=== PATIENT | male | born 1970 | race Caucasian/White ===

== ENCOUNTER 2019-08-11 12:15 | Inpatient (IN) ==
[2019-08-11] MEDS ORDERED: HYDROmorphone HCL 1 MG/ML DISP.SYRIN ONE (12:18)
[2019-08-11] MEDS ORDERED: HYDROmorphone HCL 1 MG/ML DISP.SYRIN IV ONE ×2 (12:24→13:11)
[2019-08-11] MEDS ORDERED: NORMAL SALINE 1,000 ML IV ONE (12:24)
--- NOTE | 2019-08-11 13:14 | ERNOTE ---
Trauma/Assault HPI - Narrative Date of Service: 08/11/19 - General Stated Complaint: fall Time Seen by Provider: 08/11/19 12:21 Source: patient Exam Limitations: no limitations - Immun/Allergies/Home Medications Immunizations: IMMUNIZATION HX Immunizations Up to Date Yes History of Influenza Vaccine Yes Hx Pneumococcal Vaccination No Allergies/Adverse Reactions: Allergies No Known Allergies Allergy (Verified 08/11/19 12:27) Home Medications: HOME MEDICATIONS Insulin Glargine,Hum.rec.anlog [Basaglar Kwikpen U-100] 55 unit SQ DAILY 08/11/19 [Last Taken Unknown] metFORMIN HCL [Metformin HCl] 500 mg PO BID 08/11/19 [Last Taken Unknown] - History of Present Illness Narrative: patient outside on ladder, fell 10-12 feet on right hip brought to ed per ambulance Location Occurred: Reports: home Pain Location: Reports: lower extremity Method of Injury: Reports: direct blow, fall Severity: severe Modifying Factors - (Improves): Reports: other - nothiing Loss of Consciousness: Reports: no loss of consciousness Associated Symptoms - Trauma: Reports: denies symptoms Review of Systems - Review of Systems Constitutional: Present: See HPI EYE: Present: no symptoms reported ENT: Present: no symptoms reported Respiratory: Present: no symptoms reported Cardiology: Present: no symptoms reported Gastrointestinal/Abdominal: Present: no symptoms reported Genitourinary: Present: no symptoms reported Musculoskeletal: Present: See HPI, muscle pain, muscle stiffness, joint pain Neurological: Present: no symptoms reported Endocrine: Present: no symptoms reported Hematologic/Lymphatic: Present: no symptoms reported Psych: Present: no symptoms reported All Other Systems: All systems neg except as marked Medical History (Last Updated 08/11/19 @ 12:26 by Mary Fonseca RN) Diabetes Surgical History: Surgical History (Last Updated 08/11/19 @ 12:27 by Mary Fonseca RN) H/O hand surgery Family History: Family History (Last Updated 08/11/19 @ 12:27 by Mary Fonseca RN) Other No pertinent family history Social History: (Last Updated 08/11/19 @ 12:27 by Mary Fonseca RN) Tobacco: Smoking Status: Never smoker tobacco type: smokeless tobacco Alcohol: alcohol intake: never Substance Use: substance use type: does not use Physical Exam - Physical Exam General Appearance: Present: severe distress, anxious Head Exam: Present: normal inspection, no evidence of injury Eye Exam: Normal inspection: bilateral, PERRL: bilateral, EOMI: bilateral Ears, Nose, Throat: Present: normal ENT inspection, normal pharynx Neck: Present: normal inspection, nontender Respiratory: Present: no respiratory distress, normal breath sounds, no accessory muscle use, chest nontender, lungs clear Cardiovascular/Chest: Present: no murmur, normal peripheral pulses, tachycardia Peripheral Pulses: N=norm/S=strong/W=weak/B=bound/A=absent: Carotid (R): Normal, Carotid (L): Normal, Radial (R): Normal, Radial (L): Normal, Femoral (R): Normal, Femoral (L): Normal, Dorsalis-pedis (R): Normal, Dorsalis-pedis (L): Nor mal Gastrointestinal/Abdominal: Present: normal bowel sounds, nontender, nondistended, soft, no organomegaly Back Exam: Present: normal inspection, normal range of motion, no CVA tenderness, no vertebral tenderness Extremity Exam: Present: normal except - Neurological Exam: Present: alert, oriented, normal mood/affect, no motor/sensory deficits Skin Exam: Present: normal color, warm/dry - pain in proximal right hip, neurovasculr intact Lymphatic Exam: Present: no adenopathy Detailed Trauma Exam Best Eye Response (Yaya): (4) open spontaneously Best Verbal Response (Yaya): (5) oriented Best Motor Response (Yaya): (6) obeys commands [place] Total: 15 General Appearance: Present: severe distress, anxious Head Injury: Present: normal inspection, no tenderness on palpate Neurological Exam: Present: alert, oriented x 4, no motor/sensory deficits, transportation escort II-XII nml as tested, normal cerebellar test, normal mood/affect, no motor/sensory deficit Neck Exam: Present: non-tender, full range of motion, normal alignment, normal inspection Nexus Clearance: Present: Nexus criteria negative Eye Exam: Normal inspection: bilateral, PERRL: bilateral, EOMI: bilateral ENT Exam: Present: nml ext. inspection Chest/Respiratory Exam: Present: nml inspection, chest non-tender, breath sounds nml Cardiovascular Exam: Present: no murmur, normal peripheral pulses, tachycardia Back Exam: Present: normal inspection, no CVA tenderness RU Extremity: Present: normal inspection, normal range of motion, non-tender, no edema IVIS Extremity: Present: normal inspection, normal range of motion, non-tender, no edema RL Extremity: Present: decreased range of motion, deformity, joint redness LL Extremity: Present: normal inspection, normal range of motion, non-tender, no edema DTR: bicep (R): 0, bicep (L): 0, tricep (R): 0, tricep (L): 0, knee (R): 0, knee (L): 0, ankle (R): 0, ankle (L): 0 - C-Spine cleared by: Neg history & exam Progress - Date and Time Seen: Date and Time: 08/11/19 13:13 condition unchanged case discussed with dr esquivel, to admit and repair , dr merida contacted, accepts patient for admission - Results and Orders Patient's Lab Results:: I have reviewed the patient's lab results. - Vital Signs Patient's Vital Signs:: I have reviewed the patient's vital signs. Vital Signs: Vital Signs 08/11/19 12:22 Temperature 36.5 C Pulse Rate 93 Respiratory Rate 14 Blood Pressure 146/90 H O2 Sat by Pulse Oximetry 96 - X-Ray X-Ray #1 X-Ray: femur Interpretation: Discd w/ radiologist - proximal femur fracture - Progress/Reassessment Chief Complaint: Fall Progress:: Unchanged - Transfer of Care Expected Disposition: Admit Plan - Plan Plan: to admit to hospital Departure Clinical Impression: Femur fracture, right - Departure Disposition: Short Term Hospital Inpatient Condition: Serious Critical Care Time - Critical Care Critical Time Spent:: No
[2019-08-11 13:27] LABS: Hematocrit 41.3 % (42.0-52.0); Hemoglobin 14.2 gm/dL (13.5-18.0); Mean Cell Volume 84.6 fl (78-100); Mean Corpuscular Hemoglobin 29.1 pg (27-31); Mean Corpuscular Hgb Conc 34.4 g/dl (32-36); Mean Platelet Volume 9.2 fl (8-11.3); Neutrophil # 14.4 K/mm3 (1.3-6.0); Neutrophil % 88.6 % (42-75.0); Platelet Count 223 K/mm3 (150-450); Red Blood Count 4.88 M/mm3 (4.7-6.0); Red Cell Distribution Width 12.5 % (11.5-14.0); White Blood Count 16.2 K/mm3 (4.0-10.5)
[2019-08-11] MEDS ORDERED: ONDANSETRON HCL/PF 2 MG/ML VIAL IV PRN (13:44)
[2019-08-11 13:47] LABS: Albumin * 3.4 gm/dl (3.4-5.0); Anion Gap 11.3 mmol/L (6.8-13.8); BUN/Creatinine Ratio 17.4 (9.0-21.6); Bilirubin, Total 0.4 mg/dL (0.0-1.1); Ca. Corrected For Albumin 8.7 mg/dL (8.4-10.2); Calcium * 8.5 mg/dL (7.9-10.9); Carbon Dioxide 29.7 mmol/L (24-32.6); Total Protein 6.7 gm/dL (6.2-8.2)
[2019-08-11] MEDS: NORMAL SALINE 1,000 ML IV PRN ×2 (14:45→22:49)
[2019-08-11 15:16] LABS: Cocaine Ur Negative (NEGATIVE); Urine Barbiturate Negative (NEGATIVE); Urine Benzodiazepines Negative (NEGATIVE); Urine PCP Negative (NEGATIVE); Urine THC Negative (NEGATIVE)
[2019-08-11 15:31] LABS: Urine Opiates Positive (NEGATIVE)
--- NOTE | 2019-08-11 17:40 | HP ---
Chief Complaint - Chief Complaint Date of Service: 08/11/19 Time of Service: 13:17 Chief Complaint: Right hip pain status post fall History of Present Illness: 48-year-old female with a male with a past medical history of diabetes mellitus type 2, insulin-dependent presents status post fall off of a ladder that slipped out from under him. He fell approximately 10 to 12 feet on his right hip and was brought to the emergency department. He was found to have a comminuted displaced angulated proximal right femur fractures. He denies chest pain, shortness of breath or palpitations. He does have a lot of pain in the right hip. Ortho, Dr. Bansal was consulted and he will take the patient to the operating room in the morning. Medical History (Last Reviewed 08/11/19 @ 14:03 by Shantanu Andino RN) Diabetes Surgical History: Surgical History (Last Reviewed 08/11/19 @ 14:03 by Shantanu Andino RN) H/O hand surgery Family History: Family History (Last Reviewed 08/11/19 @ 14:03 by Shantanu Andino RN) Other No pertinent family history Social History: (Last Reviewed 08/11/19 @ 14:03 by Shantanu Andino RN) Tobacco: Smoking Status: Never smoker tobacco type: smokeless tobacco Alcohol: alcohol intake: never Substance Use: substance use type: does not use Review Of Systems (GEN) - Review of Systems Generalized/Overall Review: Absent: Chills, Fever Respiratory: Absent: Shortness of Breath Cardiac: Absent: Chest Pain, Palpitations Musculoskeletal: Present: Joint Pain - Right hip Misc: All systems neg except as marked Immunizations: IMMUNIZATION HX Immunizations Up to Date Yes History of Influenza Vaccine Yes Hx Pneumococcal Vaccination No Allergies/Adverse Reactions: Allergies Allergy/AdvReac Type Severity Reaction Status Date / Time No Known Allergies Allergy Verified 08/11/19 12:27 Home Medications: HOME MEDICATIONS Insulin Glargine,Hum.rec.anlog [Keturahaglgely [place] U-100] 55 unit SQ DAILY 08/11/19 [Last Taken Unknown] metFORMIN HCL [Metformin HCl] 500 mg PO BID 08/11/19 [Last Taken Unknown] Exam - Exam Vital Signs: Vital Signs - Last Taken Temp 36.8 C 08/11/19 14:22 Pulse 98 08/11/19 14:31 Resp 17 08/11/19 14:22 BP 119/76 08/11/19 14:22 Pulse Ox 95 08/11/19 14:22 Constitutional: Present: Alert, Cooperative, Well developed, Well nourished, Morbidly obese ENT Exam: Present: hearing grossly normal, dry mucous membranes Eye Exam: bilateral eye: normal inspection, PERRL, EOMI Neck: Present: non-tender, supple, trachea midline. Absent: lymphadenopathy (R), lymphadenopathy (L) Respiratory: Present: lungs clear, normal breath sounds, no respiratory distress, no accessory muscle use, No wheezing Cardiovascular/Chest: Present: normal peripheral pulses, regular rate, rhythm, no murmur Peripheral Pulses: dorsalis-pedis (R): 1+, dorsalis-pedis (L): 1+ Abdomen: Present: Normal bowel sounds, soft, nontender, obese Extremity: Present: no pedal edema, leg pain - Right leg externally rotated Skin Exam: Present: normal color, warm/dry Neurologic: Present: alert, normal mood/affect Appearance: Present: appropriate insight Eye contact: Present: cooperative Thoughts: Present: normal thought pattern, normal mood /affect Diagnostic Studies: Abnormal Lab Results 08/11/19 08/11/19 08/11/19 Range/Units 13:15 13:15 14:45 WBC 16.2 H (4.0-10.5) K/mm3 Hct 41.3 L (42.0-52.0) % Immature Gran % (Auto) 0.90 H (0.001-0.429) % Immature Gran # (Auto) 0.15 H (0.000-0.0310) K/mm3 Neutrophils % 88.6 H (42-75.0) % Lymphocytes % 4.1 L (20-51) % Neutrophils # 14.4 H (1.3-6.0) K/mm3 Lymphocytes # 0.67 L (1.5-3.5) k/mm3 Sodium 143 H (132-142) mmol/L Plasma Sodium 143 H (130-142) mmol/L Est GFR (Non-Af Amer) 131 H (60-130) mL/min Random Glucose 127 H (70-110) mg/dL Urine Opiates Screen Positive H (NEGATIVE) Laboratory Results WBC 16.2 K/mm3 (4.0-10.5) H 08/11/19 13:15 RBC 4.88 M/mm3 (4.7-6.0) 08/11/19 13:15 Hgb 14.2 gm/dL (13.5-18.0) 08/11/19 13:15 Hct 41.3 % (42.0-52.0) L 08/11/19 13:15 MCV 84.6 fl (78-100) 08/11/19 13:15 MCH 29.1 pg (27-31) 08/11/19 13:15 MCHC 34.4 g/dl (32-36) 08/11/19 13:15 RDW 12.5 % (11.5-14.0) 08/11/19 13:15 Plt Count 223 K/mm3 (150-450) 08/11/19 13:15 MPV 9.2 fl (8-11.3) 08/11/19 13:15 Immature Gran % (Auto) 0.90 % (0.001-0.429) H 08/11/19 13:15 Immature Gran # (Auto) 0.15 K/mm3 (0.000-0.0310) H 08/11/19 13:15 Neutrophils % 88.6 % (42-75.0) H 08/11/19 13:15 Lymphocytes % 4.1 % (20-51) L 08/11/19 13:15 Monocytes % 6.0 % (0.0-9) 08/11/19 13:15 Eosinophils % 0.2 % (0.0-3.0) 08/11/19 13:15 Basophils % 0.2 % (0.0-1.0) 08/11/19 13:15 Nucleated RBC % 0.0 k/mm3 (0-1) 08/11/19 13:15 Neutrophils # 14.4 K/mm3 (1.3-6.0) H 08/11/19 13:15 Lymphocytes # 0.67 k/mm3 (1.5-3.5) L 08/11/19 13:15 Monocytes # 1.0 k/mm3 (0.0-1.0) 08/11/19 13:15 Eosinophils # 0.0 k/mm3 (0.0-0.7) 08/11/19 13:15 Absolute Basophils 0.0 k/mm3 (0.0-0.1) 08/11/19 13:15 Sodium 143 mmol/L (132-142) H 08/11/19 13:15 Plasma Sodium 143 mmol/L (130-142) H 08/11/19 13:15 Potassium 4.0 mmol/L (3.4-4.6) 08/11/19 13:15 Chloride 106 mmol/L (97-106) 08/11/19 13:15 Carbon Dioxide 29.7 mmol/L (24-32.6) 08/11/19 13:15 Anion Gap 11.3 mmol/L (6.8-13.8) 08/11/19 13:15 BUN 12 mg/dL (6-23) 08/11/19 13:15 Creatinine 0.69 mg/dL (0.4-1.4) 08/11/19 13:15 Est GFR (Non-Af Amer) 131 mL/min (60-130) H 08/11/19 13:15 BUN/Creatinine Ratio 17.4 (9.0-21.6) 08/11/19 13:15 Random Glucose 127 mg/dL (70-110) H 08/11/19 13:15 Calcium 8.5 mg/dL (7.9-10.9) 08/11/19 13:15 Calcium Adj for Albumin 8.7 mg/dL (8.4-10.2) 08/11/19 13:15 Total Bilirubin 0.4 mg/dL (0.0-1.1) 08/11/19 13:15 AST 31 U/L (0-48) 08/11/19 13:15 ALT 45 U/L (19-67) 08/11/19 13:15 Alkaline Phosphatase 151 U/L (50-170) 08/11/19 13:15 Total Protein 6.7 gm/dL (6.2-8.2) 08/11/19 13:15 Albumin 3.4 gm/dl (3.4-5.0) 08/11/19 13:15 Urine Opiates Screen Positive (NEGATIVE) H 08/11/19 14:45 Barbiturate Screen Negative (NEGATIVE) 08/11/19 14:45 Ur Phencyclidine Scrn Negative (NEGATIVE) 08/11/19 14:45 Urine Amphetamine Negative (NEGATIVE) 08/11/19 14:45 U Benzodiazepines Scrn Negative (NEGATIVE) 08/11/19 14:45 Urine Cocaine Screen Negative (NEGATIVE) 08/11/19 14:45 Urine Marijuana (THC) Negative (NEGATIVE) 08/11/19 14:45 Ethyl Alcohol 4.0 mg/dL (0.0-10.0) 08/11/19 13:15 Blood Type O Positive 08/11/19 13:15 Antibody Screen Negative 08/11/19 13:15 Assessment/Plan - Narrative Narrative: 48-year-old female with a male with a past medical history of diabetes mellitus type 2, insulin-dependent presents status post fall off of a ladder that slipped out from under him. He fell approximately 10 to 12 feet on his right hip and was brought to the emergency department. He was found to have a comminuted displaced angulated proximal right femur fractures. He denies chest pain, shortness of breath or palpitations. He does have a lot of pain in the right hip. Ortho, Dr. Bansal was consulted and he will take the patient to the operating room in the morning. Patient is medically cleared for the procedure. Plan #1 Continue with morphine for pain management #2 continue with diabetic diet but n.p.o. 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
[2019-08-11] MEDS: HYDROmorphone HCL 1 MG/ML DISP.SYRIN IV PRN ×2 (18:35→22:41)
[2019-08-11] MEDS: INSULIN GLARGINE,HUM.REC.ANLOG 100 UNITS/ML VIAL SC SCH (18:55)
[2019-08-12] MEDS: HYDROmorphone HCL 1 MG/ML DISP.SYRIN IV PRN ×7 (01:52→23:18)
[2019-08-12] MEDS ORDERED: ceFAZolin SODIUM 1 GM VIAL IV PRN (06:00)
[2019-08-12] MEDS ORDERED: DEXTROSE 50%-WATER 50 ML SYRG IV ONE (06:35)
[2019-08-12 06:43] LABS: Hematocrit 31.7 % (42.0-52.0); Hemoglobin 10.9 gm/dL (13.5-18.0); Mean Cell Volume 84.8 fl (78-100); Mean Corpuscular Hemoglobin 29.1 pg (27-31); Mean Corpuscular Hgb Conc 34.4 g/dl (32-36); Mean Platelet Volume 9.1 fl (8-11.3); Neutrophil # 5.3 K/mm3 (1.3-6.0); Neutrophil % 74.2 % (42-75.0); Platelet Count 192 K/mm3 (150-450); Red Blood Count 3.74 M/mm3 (4.7-6.0); Red Cell Distribution Width 12.5 % (11.5-14.0); White Blood Count 7.2 K/mm3 (4.0-10.5)
[2019-08-12 06:56] LABS: Albumin * 2.9 gm/dl (3.4-5.0); Anion Gap 9.2 mmol/L (6.8-13.8); BUN/Creatinine Ratio 13.7 (9.0-21.6); Bilirubin, Total 0.7 mg/dL (0.0-1.1); Ca. Corrected For Albumin 8.6 mg/dL (8.4-10.2); Carbon Dioxide 28.6 mmol/L (24-32.6); Potassium 3.8 mmol/L (3.4-4.6); Total Protein 5.7 gm/dL (6.2-8.2)
[2019-08-12] MEDS: NORMAL SALINE 1,000 ML IV PRN (07:00)
[2019-08-12] MEDS ORDERED: ceFAZolin SODIUM/DEXTROSE,ISO 2 GM/50 ML BAG IV ONE (08:02)
--- NOTE | 2019-08-12 08:02 | CONS ---
[facility] - General Date of Service: 08/12/19 Narrative: Mr. Barragan is a 48-year-old gentleman who was on a ladder when it slipped and fell resulting in a comminuted proximal femur fracture. He was seen in emergency department subsequently admitted to the floor for preoperative optimization. He is resting in bed this time. Reports some pain to his right hip. He denies any prior right hip trauma. He is otherwise healthy and active. Source: patient Exam Limitations: no limitations - History of Present Illness Timing/Duration: 24 hours Severity: moderate Modifying Factors - (Worsens): Reports: movement Modifying Factors - (Improves): Reports: immobilization Associated Symptoms: denies symptoms Allergies/Adverse Reactions: Allergies No Known Allergies Allergy (Verified 08/11/19 12:27) Home Medications: Home Medications Medication Instructions Recorded Last Taken Insulin Glargine,Hum.rec.anlog 55 unit SQ DAILY 08/11/19 Unknown [Basaglar Kwikpen U-100] metFORMIN HCL [Metformin HCl] 500 mg PO BID 08/11/19 Unknown Procedures Detachment at Left Ring Finger, Low, Open Approach (05/26/15) Medications - Medications Current Medications: Current Medications Hydromorphone HCl (Dilaudid) 1 mg IV Q2H PRN PRN Reason: Analgesia Stop: 09/10/19 13:44 Last Admin: 08/12/19 06:53 Dose: 1 mg Documented by: Sodium Chloride (Sodium Chloride 0.9%) 1,000 mls @ 125 mls/hr IV .Q8H PRN PRN Reason: HYDRATION Stop: 09/10/19 13:44 Last Admin: 08/12/19 07:00 Dose: 125 mls/hr Documented by: Insulin Glargine (Lantus) 55 units SC DAILY BRYAN Stop: 09/10/19 12:01 Last Admin: 08/11/19 18:55 Dose: Not Given Documented by: Review of Systems - Review of Systems Narrative: Negative except for above Physical Examination - Exam Narrative: Right lower extremity: Thigh is swollen but not tense, palpable dorsalis pedis pulse, sensation is intact light touch, he is able to flex and extend his toes and ankle, he sitting with a shortened externally rotated leg. No ecchymosis, lacerations or abrasions around the hip. Vital Signs: Vital Signs - Last Taken Temp 37.0 C 08/12/19 06:00 Pulse 97 08/12/19 06:00 Resp 16 08/12/19 06:00 BP 122/73 08/12/19 06:00 Pulse Ox 98 08/12/19 06:00 O2 Oxygen Delivery Method Room Air Constitutional: Present: Alert, Oriented x3 - Results and Findings: Narrative: Right hip and femur films: Comminuted mildly displaced right subtrochanteric proximal femur fracture, no signs of arthrosis or any other pathology. Lab/Microbiology results last 24 hrs: Abnormal/Pending Laboratory Last 24 HRS 08/12/19 08/12/19 08/11/19 06:15 06:15 14:45 WBC RBC 3.74 L Hgb 10.9 L Hct 31.7 L Immature Gran % (Auto) 0.60 H Immature Gran # (Auto) 0.04 H Neutrophils % Lymphocytes % 15.1 L Neutrophils # Lymphocytes # 1.09 L Sodium Plasma Sodium Est GFR (Non-Af Amer) Random Glucose Total Protein 5.7 L Albumin 2.9 L Urine Opiates Screen Positive H 08/11/19 08/11/19 13:15 13:15 WBC 16.2 H RBC Hgb Hct 41.3 L Immature Gran % (Auto) 0.90 H Immature Gran # (Auto) 0.15 H Neutrophils % 88.6 H Lymphocytes % 4.1 L Neutrophils # 14.4 H Lymphocytes # 0.67 L Sodium 143 H Plasma Sodium 143 H Est GFR (Non-Af Amer) 131 H Random Glucose 127 H Total Protein Albumin Urine Opiates Screen - Assessments/Findings (1) Femur fracture, right Diagnosis(s): Plan is for closed versus open reduction cephalo-medullary fixation of the right hip. Risks and recovery were discussed with the patient. He will continue to be n.p.o. and will receive IV Ancef perioperatively. Consent will be obtained his leg was marked. Problem: Acute Qualifiers: Encounter type: initial encounter Fracture type: closed Fracture morphology: comminuted Fracture alignment: displaced
--- NOTE | 2019-08-12 09:42 | PN ---
Subjective - Date and Time Seen Date: 08/12/19 Time: 08:43 Subjective Narrative: He continues to have pain in the right hip that is better with the IV Dilaudid. Denies shortness of breath, chest pain or abdominal pain. Objective - Review of Systems Generalized/Overall Review: Denies: Chills, Fever Respiratory: Denies: Shortness of Breath Cardiac: Denies: Chest Pain Abdominal: Denies: Abdominal Pain Musculoskeletal Complaints: Reports: Joint Pain - Right hip Misc: All systems neg except as marked - Vitals Vitals: Last Vital Signs Temp 37.0 C 08/12/19 06:00 Pulse 97 08/12/19 06:00 Resp 16 08/12/19 06:00 BP 122/73 08/12/19 06:00 Pulse Ox 98 08/12/19 06:00 - Abnormal Lab Findings Abnormal Lab Findings: Abnormal Lab Results 08/11/19 08/11/19 08/11/19 Range/Units 13:15 13:15 14:45 WBC 16.2 H (4.0-10.5) K/mm3 RBC (4.7-6.0) M/mm3 Hgb (13.5-18.0) gm/dL Hct 41.3 L (42.0-52.0) % Immature Gran % (Auto) 0.90 H (0.001-0.429) % Immature Gran # (Auto) 0.15 H (0.000-0.0310) K/mm3 Neutrophils % 88.6 H (42-75.0) % Lymphocytes % 4.1 L (20-51) % Neutrophils # 14.4 H (1.3-6.0) K/mm3 Lymphocytes # 0.67 L (1.5-3.5) k/mm3 Sodium 143 H (132-142) mmol/L Plasma Sodium 143 H (130-142) mmol/L Est GFR (Non-Af Amer) 131 H (60-130) mL/min Random Glucose 127 H (70-110) mg/dL Total Protein (6.2-8.2) gm/dL Albumin (3.4-5.0) gm/dl Urine Opiates Screen Positive H (NEGATIVE) 08/12/19 08/12/19 Range/Units 06:15 06:15 WBC (4.0-10.5) K/mm3 RBC 3.74 L (4.7-6.0) M/mm3 Hgb 10.9 L (13.5-18.0) gm/dL Hct 31.7 L (42.0-52.0) % Immature Gran % (Auto) 0.60 H (0.001-0.429) % Immature Gran # (Auto) 0.04 H (0.000-0.0310) K/mm3 Neutrophils % (42-75.0) % Lymphocytes % 15.1 L (20-51) % Neutrophils # (1.3-6.0) K/mm3 Lymphocytes # 1.09 L (1.5-3.5) k/mm3 Sodium (132-142) mmol/L Plasma Sodium (130-142) mmol/L Est GFR (Non-Af Amer) (60-130) mL/min Random Glucose (70-110) mg/dL Total Protein 5.7 L (6.2-8.2) gm/dL Albumin 2.9 L (3.4-5.0) gm/dl Urine Opiates Screen (NEGATIVE) - Exam Constitutional: Present: Alert, Cooperative, Well developed, Well nourished, No distress, Middle aged ENT Exam: Present: hearing grossly normal Neck: Absent: lymphadenopathy (R), lymphadenopathy (L) Respiratory: Present: lungs clear, no respiratory distress, no accessory muscle use, No wheezing. Absent: crackles, rhonchi Cardiovascular/Chest: Present: normal peripheral pulses, regular rate, rhythm, no edema, no murmur Abdomen: Present: Normal bowel sounds, soft, nontender, obese Extremity: Present: no pedal edema, leg pain - Right leg is externally rotated Skin Exam: Present: normal color, warm/dry Appearance: Present: appropriate appearance, appropriate insight Eye contact: Present: cooperative Thoughts: Present: normal thought pattern, normal mood /affect Assessment/Plan Plan Narrative: 48-year-old female with a male with a past medical history of diabetes mellitus type 2, insulin-dependent presents status post fall off of a ladder that slipped out from under him. He fell approximately 10 to 12 feet on his right hip and was brought to the emergency department. He was found to have a comminuted displaced angulated proximal right femur fractures. He denies chest pain, shortness of breath or palpitations. He does have a lot of pain in the right hip. Ortho, Dr. Bansal was consulted and he will take the patient to the operating room later today. Patient is medically cleared for the procedure. He had an episode of hypoglycemia with blood sugar in the 60s this morning. Hypoglycemia resolved with a half amp of D50. Plan #1 Continue with Dilaudid 1 mg every 2 hours as needed for pain management #2 He is currently n.p.o. #3 continue with IV fluids #4 hold all his diabetic medications in the morning #5 continue to monitor monitor blood sugars and give a half amp of D50 as needed for blood sugar less than 70. 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
--- NOTE | 2019-08-12 10:16 | ANES ---
Anesthesia Pre Procedure Eval Vitals/Labs: Last Vital Signs Temp 37.0 C 08/12/19 06:00 Pulse 97 08/12/19 06:00 Resp 16 08/12/19 06:00 BP 122/73 08/12/19 06:00 Pulse Ox 98 08/12/19 06:00 HOME MEDICATIONS Insulin Glargine,Hum.rec.anlog [Basaglar Kwikpen U-100] 55 unit SQ DAILY 08/11/19 [Last Taken Unknown] metFORMIN HCL [Metformin HCl] 500 mg PO BID 08/11/19 [Last Taken Unknown] Allergies/Adverse Reactions: Allergies Allergy/AdvReac Type Severity Reaction Status Date / Time No Known Allergies Allergy Verified 08/11/19 12:27 - Planned Procedure Planned Procedure: Femur Fracture Medication List Reviewed:: Yes Allergies Verified: Yes Medical History (Last Reviewed 08/12/19 @ 10:15 by Manan Merrill CRNA) Diabetes Surgical History (Last Reviewed 08/12/19 @ 10:15 by Manan Merrill CRNA) H/O hand surgery Family History (Last Reviewed 08/12/19 @ 10:15 by Manan Merrill CRNA) Other No pertinent family history - Family Anesthesia History Family History:: no untoward family reactions to anesthesia - Airway/Neck/Teeth Teeth Condition: none Neck Exam: limited range of motion Mallampatti Score: 3 Thyromental (T-M) distance: > 6 cm Mandibulo Hyoid distance: > 3 cm - Respiratory Respiratory Physical: lungs clear Smoking Status: Never smoker Sleep Apnea currently treated: No Sleep Apnea by current assessment: No - Cardiovascular Tolerate Activity: Good Heart Sounds: S1 & S2, Regular - Gastrointestinal NPO since: MN - Anesthesia Assessment and Plan ASA Class: PS, II Anesthesia Type Plan: Spinal Planned difficult intubation/equipment available: No
[2019-08-12] MEDS ORDERED: BUPIVACAINE HCL/PF 10 ML VIAL ONE (11:07)
[2019-08-12] MEDS ORDERED: PROPOFOL VIAL IV ONE (11:07)
[2019-08-12] MEDS ORDERED: MIDAZOLAM HCL/PF 5 MG/ML VIAL ONE (11:07)
[2019-08-12] MEDS ORDERED: EPINEPHrine 1 MG/ML AMPUL ONE (11:16)
[2019-08-12] MEDS ORDERED: fentaNYL CITRATE/PF 50 MCG/ML AMPUL ONE (11:17)
[2019-08-12] MEDS ORDERED: ceFAZolin SODIUM 1 GM VIAL ONE (11:24)
[2019-08-12] MEDS: RINGER'S SOLUTION,LACTATED 1,000 ML IV PRN ×2 (12:15→14:01)
[2019-08-12] MEDS ORDERED: MAG HYDROX/ALUMINUM HYD/SIMETH 30 ML UDC PO PRN (14:20)
[2019-08-12] MEDS ORDERED: ZOLPIDEM TARTRATE 5 MG TABLET PO PRN (14:20)
[2019-08-12] MEDS ORDERED: diphenhydrAMINE HCL 50 MG/ML VIAL IV PRN (14:20)
[2019-08-12] MEDS ORDERED: MAGNESIUM HYDROXIDE 30 ML UDC PO PRN (14:20)
--- NOTE | 2019-08-12 14:20 | OR ---
Operative Report - Dictated Report Narrative: Date: 08/12/2019 Surgeon: Francisco J Kimbrough M.D. Elevator Operator Service: Regulo Bright PA-C (provided an essential set of skilled educated handset assisted with transfer, positioning, prepping, draping, placement of instruments, insertion of implants, irrigation, closure wounds, and placement of dressings all which could not be performed by the available surgical crew) Preoperative diagnosis: Closed right comminuted displaced joselin-trochanteric femur fracture Postoperative diagnosis:Closed right comminuted displaced joselin-trochanteric femur fracture Operations and procedures: 1. Closed reduction, cephalo-medullary fixation comminuted right joselin- trochanteric femur fracture 2. Intraoperative interpretation of radiographs Anesthesia: Spinal Specimens: None Estimated blood loss: 100 Milliliters Retained implants: [employer] Trigen InterTAN 130 degree size 11.5 mm by 38 centimeter nail with 108 millimeter lag screw and 100 millimeter compression screw, with distal locking screws Complications: None Indications for procedure: Mr. Barragan is a's 48-year-old gentleman who injured the right leg after falling from a ladder. They were admitted to the hospital after being evaluated in the emergency department. Once the medical provider felt that they were stable for surgical treatment, the risks and benefits alternatives were discussed. The risks of , blood clots, bleeding, infection, nerve/tendon/blood vessel injury, malunion, nonunion, failure of implants, painful implants, arthrosis, and need for additional procedures were discussed. The extremity was marked and consent was obtained on the floor. Procedure: After marking the operative extremity on the floor, the patient was taken to the operating room. A timeout was performed. IV antibiotics consisting of Ancef were administered. A spinal anesthetic was induced by anesthesia, and the patient was then placed onto a fracture table with a well-padded perineal post. The nonoperative leg was placed in a well-padded traction boot in slight extension without any traction with an SCD on the leg. The operative leg was placed in a well-padded traction boot. Longitudinal traction, internal rotation, and flexion were utilized in order to reduce the fracture. Preliminary images were attained utilizing C-arm in both the AP and lateral views. This confirmed that we had obtained adequate visualization of the fracture as well as reduction. Next the hip was then prepped and draped in a standard sterile fashion. Next the guidewire was placed percutaneously proximal to the greater trochanter to hawa a starting point at the tip of the greater trochanter centered on the lateral view. This was passed down to the level below the lesser trochanter. A scalpel was utilized in order to dissect down to the greater trochanter in order to place the soft tissue protector down to bone. The entry drill was then placed down the proximal femur to the level of the lesser trochanter. Next the guidewire was placed down the femur. We made sure that the fracture was reduced and a series of reamers up to a size 13 was utilized. The proper size nail was then selected and impacted into place. The outrigger was utilized in order to confirm the appropriate depth of the nail. Using the alignment device on the outrigger, an incision was made over the lateral femur. Sharp dissection was carried through the iliotibial band down to the proximal femur. The guidewire was placed into the femoral head in a center- center position on AP and lateral views. The tip-apex distance of less than 25 mm combined was obtained. Once we felt that we had placed a guidewire in the appropriate position, it was measured. Next the compression screw site was drilled through the lateral femoral cortex. This was then drilled down to the appropriate depth, again confirming that we are within the confines the bone. The derotational bar was then placed and the lag screw was drilled. The lag screw was then secured in place seating fully ensuring that we were within the confines of the bone. The compression screw was then inserted allowing for compression while releasing the traction on the leg. Using C-arm this was visualized to allow for compression across the fracture site. Once is felt that we had adequately stabilized the fracture, the distal interlocking screw was placed in a dynamic position distally and static position proximally using perfect circles and C arm for guidance. It was confirmed to be the appropriate length and within the nail on both AP and lateral views. The nail was secured allowing for controlled compression and the outrigger was removed. The wounds were then thoroughly irrigated. Final images were obtained. The hip was placed through range of motion and showed no crepitance. The deep fascia was closed with 0 Vicryl, the subcutaneous tissue with 3-0 Vicryl, and the skin was closed with romina. Sterile dressings of Xeroform, 4 x 4, and tape were applied. All sponge, sharp, and instrument counts were correct prior to closing the wounds. The patient was then awoken and transferred to the postanesthesia care unit in stable condition.
--- NOTE | 2019-08-12 14:26 | ANES ---
Post Anesthesia Discharge - Transfer of Care Transfer of Care handoff given to nurse: Yes - Discharge from PACU Discharge from PACU when meets criteria: Yes - Awake and comfortable.
--- NOTE | 2019-08-12 14:44 | ANES ---
Post Anesthesia Assessment - Vital Signs Vitals: Last Vital Signs Temp 37.2 C 08/12/19 10:00 Pulse 100 08/12/19 10:00 Resp 20 08/12/19 10:00 BP 142/79 H 08/12/19 10:00 Pulse Ox 93 08/12/19 10:00 Airway Patency: Normal - Mental Status Level Of Consciousness: Awake, Alert, Appropriate - Pain Level Pain Score: 0 - N/V Assessment Nausea/Vomiting Presence: None Dehydration:: No
[2019-08-12] MEDS: oxyCODONE HCL/ACETAMINOPHEN 1 TAB TABLET PO PRN ×2 (16:11→20:13)
[2019-08-12] MEDS: ceFAZolin SODIUM 1 GM in DEXTROSE 5 % IN WATER 100 ML IV SCH ×4 (16:15→22:37)
[2019-08-12] MEDS ORDERED: CYCLOBENZAPRINE HCL 10 MG TABLET PO PRN (16:59)
[2019-08-12] MEDS: SENNOSIDES/DOCUSATE SODIUM 1 TAB TABLET PO SCH (20:30)
[2019-08-13] MEDS: oxyCODONE HCL/ACETAMINOPHEN 1 TAB TABLET PO PRN ×6 (00:27→21:28)
[2019-08-13] MEDS: ceFAZolin SODIUM 1 GM in DEXTROSE 5 % IN WATER 100 ML IV SCH ×2 (04:31)
[2019-08-13 06:20] LABS: Hematocrit 24.7 % (42.0-52.0); Hemoglobin 8.6 gm/dL (13.5-18.0); Mean Cell Volume 83.7 fl (78-100); Mean Corpuscular Hemoglobin 29.2 pg (27-31); Mean Corpuscular Hgb Conc 34.8 g/dl (32-36); Mean Platelet Volume 9.4 fl (8-11.3); Platelet Count 155 K/mm3 (150-450); Red Blood Count 2.95 M/mm3 (4.7-6.0); Red Cell Distribution Width 12.5 % (11.5-14.0); White Blood Count 8.2 K/mm3 (4.0-10.5)
[2019-08-13 06:29] LABS: Anion Gap 7.8 mmol/L (6.8-13.8); BUN/Creatinine Ratio 12.3 (9.0-21.6); Calcium * 7.7 mg/dL (7.9-10.9); Carbon Dioxide 29.1 mmol/L (24-32.6); Estimated Creat Clear 133.2; Potassium 3.9 mmol/L (3.4-4.6)
[2019-08-13] MEDS: HYDROmorphone HCL 1 MG/ML DISP.SYRIN IV PRN (06:52)
[2019-08-13] MEDS: ACETAMINOPHEN 500 MG TABLET PO PRN ×2 (07:11→23:34)
[2019-08-13] MEDS: APIXABAN 2.5 MG TABLET PO SCH ×2 (08:06→20:40)
[2019-08-13] MEDS: INSULIN GLARGINE,HUM.REC.ANLOG 100 UNITS/ML VIAL SC SCH (08:14)
[2019-08-13] MEDS: metFORMIN HCL 500 MG TABLET PO SCH ×2 (08:14→17:22)
[2019-08-13] MEDS ORDERED: LORazepam 1 MG TABLET PO PRN ×3 (09:32)
--- NOTE | 2019-08-13 09:54 | PN ---
Subjective - Date and Time Seen Date: 08/13/19 Time: 09:51 Subjective Narrative: Subjective: Reports pain. Was able to get up to the chair with therapy. Pain is well-controlled. Voiding without any complications. Tolerating by mouth intake. Denies any nausea or vomiting. Denies calf pain. Physical exam: Alert and oriented to person, place and time Right lower extremity: Palpable dorsalis pedis pulse. Sensation grossly intact to light touch. Dressings with some bloody drainage through the middle incision. Able to flex and extend ankle and toes. No excessive drainage. Calf and thigh are soft and nontender. Assessment: Postop day 1 status post intramedullary fixation of right peritrochanteric femur fracture. Plan: Continue with physical and occupational therapy 25% weightbearing and range of motion as tolerated. Continue with anticoagulation -he will need 30 days of DVT prophylaxis. 24 hours postoperative prophylactic antibiotics. Pain control with goal to rely on oral medications. Continue bowel regimen. Will need 6 weeks with walker or assitive device to protect joint while ambulating during the recovery process. Discharge planning. Discontinue Paredes catheter. Objective - Vitals Vitals: Last Vital Signs Temp 38.3 C H 08/13/19 07:06 Pulse 119 H 08/13/19 07:06 Resp 16 08/13/19 07:06 BP 108/70 08/13/19 07:06 Pulse Ox 94 08/13/19 07:06 - Abnormal Lab Findings Abnormal Lab Findings: Abnormal Lab Results 08/13/19 08/13/19 Range/Units 06:03 06:03 RBC 2.95 L (4.7-6.0) M/mm3 Hgb 8.6 L (13.5-18.0) gm/dL Hct 24.7 L (42.0-52.0) % Sodium 131 L (132-142) mmol/L Random Glucose 184 H D (70-110) mg/dL Calcium 7.7 L (7.9-10.9) mg/dL Cauti Physician Documentation - Urinary Catheter Management Urethral (Paredes) Date of Insertion: 08/12/19 Time of Insertion: 12:05 Assessment/Plan - Problems/Diagnosis (1) Femur fracture, right Problem: Acute Qualifiers: Encounter type: subsequent encounter Fracture type: closed Fracture morphology: comminuted Fracture alignment: displaced Fracture healing: with routine healing
[2019-08-13] MEDS ORDERED: MORPHINE SULFATE 2 MG/ML DISP.SYRIN IV PRN (13:40)
--- NOTE | 2019-08-13 13:47 | PN ---
Subjective - Date and Time Seen Date: 08/13/19 Time: 08:48 Subjective Narrative: He denies pain this morning. He is passing gas but no bowel movement yet. He ate some of his breakfast. Denies chest pain, shortness of breath or abdominal pain. Objective Objective Narrative: The patient was a little lethargic this morning but arousable and able to answer questions. He was also diaphoretic. - Review of Systems Generalized/Overall Review: Reports: Diaphoresis. Denies: Chills, Fever Respiratory: Denies: Shortness of Breath Cardiac: Denies: Chest Pain Abdominal: Denies: Abdominal Pain Misc: All systems neg except as marked - Vitals Vitals: Last Vital Signs Temp 37.7 C 08/13/19 10:09 Pulse 99 08/13/19 10:09 Resp 13 08/13/19 10:09 BP 113/68 08/13/19 10:09 Pulse Ox 100 08/13/19 10:09 - Abnormal Lab Findings Abnormal Lab Findings: Abnormal Lab Results 08/13/19 08/13/19 Range/Units 06:03 06:03 RBC 2.95 L (4.7-6.0) M/mm3 Hgb 8.6 L (13.5-18.0) gm/dL Hct 24.7 L (42.0-52.0) % Sodium 131 L (132-142) mmol/L Random Glucose 184 H D (70-110) mg/dL Calcium 7.7 L (7.9-10.9) mg/dL - Exam Constitutional: Present: Alert, Cooperative, Well developed, Well nourished, No distress ENT Exam: Present: hearing grossly normal Neck: Present: non-tender. Absent: lymphadenopathy (R), lymphadenopathy (L) Respiratory: Present: chest non-tender, lungs clear, no respiratory distress, no accessory muscle use, No wheezing. Absent: crackles, rhonchi Cardiovascular/Chest: Present: normal peripheral pulses, regular rate, rhythm, no edema, no murmur Abdomen: Present: Normal bowel sounds, soft, nontender, obese Extremity: Present: normal range of motion, non-tender, no pedal edema Skin Exam: Present: normal color, warm/dry Neurologic: Present: no motor/sensory deficits, alert, normal mood/affect Appearance: Present: appropriate appearance, appropriate insight Eye contact: Present: cooperative Thoughts: Present: normal thought pattern, normal mood /affect Cauti Physician Documentation - Urinary Catheter Management Urethral (Paredes) Date of Insertion: 08/12/19 Time of Insertion: 12:05 Assessment/Plan Plan Narrative: 48-year-old female with a male with a past medical history of diabetes mellitus type 2, insulin-dependent presents status post fall off of a ladder that slipped out from under him. He fell approximately 10 to 12 feet on his right hip and was brought to the emergency department. He was found to have a comminuted displaced angulated proximal right femur fractures. He denies chest pain, shortness of breath or palpitations. He does have a lot of pain in the right hip. Ortho, Dr. Bansal was consulted and he will take the patient to the operating room later today. He is status pos closed reduction, cephalo-medullary fixation of comminuted right peritrochanteric femur fracture on August 12, [address] Oviedo. His pain was not well controlled overnight so he was given the IV Dilaudid 2 mg. Goal is to transition him to oral medications only. He was very diaphoretic and tachycardic this morning. Questionable whether or not he is withdrawing from alcohol. He has a history of alcohol abuse. On admission his alcohol level was 4. Start CIWA protocol. Plan #1 Stop Dilaudid and switch to morphine 2 mg IV every 3 hours as needed severe pain. Goal is to transition him to only oral medications. Continue with Percocet 5-325 mg, 2 tablets every 4 hours as needed for pain #2 Resume diabetic diet #3 Stop IV fluids, he is tolerating a diet #4 Resume all home medications for comorbidities. #5 Continue with physical therapy and Occupational Therapy #6 CIWA protocol with Ativan as needed - Problems/Diagnosis (1) Femur fracture, right Problem: Acute Qualifiers: Encounter type: subsequent encounter Fracture type: closed Fracture morphology: comminuted Fracture alignment: displaced Fracture healing: with routine healing (2) Diabetes mellitus Problem: Chronic Qualifiers: Diabetes mellitus type: type 2 Diabetes mellitus intermediate insulin use: with pullboat engineer use Diabetes mellitus complication status: without complication Qualified Code(s): E11.9 - Type 2 diabetes mellitus without complications; Z79.4 - dragline engineer (current) use of insulin (3) Morbid obesity with BMI of 40.0-44.9, adult Problem: Chronic (4) Hypoglycemia associated with type 2 diabetes mellitus Problem: Resolved (5) History of alcohol abuse Problem: Chronic
[2019-08-13] MEDS: SENNOSIDES/DOCUSATE SODIUM 1 TAB TABLET PO SCH (20:40)
[2019-08-14] MEDS: oxyCODONE HCL/ACETAMINOPHEN 1 TAB TABLET PO PRN ×2 (02:17→08:16)
[2019-08-14 06:00] LABS: Mean Cell Volume 83.7 fl (78-100); Mean Corpuscular Hemoglobin 29.2 pg (27-31); Mean Corpuscular Hgb Conc 34.8 g/dl (32-36); Mean Platelet Volume 9.4 fl (8-11.3); Neutrophil # 6.7 K/mm3 (1.3-6.0); Neutrophil % 73.3 % (42-75.0); Platelet Count 152 K/mm3 (150-450); Red Blood Count 2.64 M/mm3 (4.7-6.0); Red Cell Distribution Width 12.5 % (11.5-14.0); White Blood Count 9.2 K/mm3 (4.0-10.5)
[2019-08-14 06:03] LABS: Hematocrit 22.1 % (42.0-52.0); Hemoglobin 7.7 gm/dL (13.5-18.0)
[2019-08-14 06:21] LABS: Albumin * 2.6 gm/dl (3.4-5.0); Anion Gap 10.1 mmol/L (6.8-13.8); BUN/Creatinine Ratio 8.5 (9.0-21.6); Bilirubin, Total 0.5 mg/dL (0.0-1.1); Ca. Corrected For Albumin 8.8 mg/dL (8.4-10.2); Carbon Dioxide 29.4 mmol/L (24-32.6); Potassium 3.5 mmol/L (3.4-4.6); Total Protein 5.7 gm/dL (6.2-8.2)
--- NOTE | 2019-08-14 06:50 | PN ---
Subjective - Date and Time Seen Date: 08/14/19 Time: 06:48 Subjective Narrative: Patient reports his pain is controlled, however his upper thigh is very swollen. He has difficulty moving it due to the swelling. Objective - Review of Systems Generalized/Overall Review: Reports: Fever EENTM: Denies: Throat Pain Respiratory: Denies: Cough, Shortness of Breath Cardiac: Denies: Chest Pain, Edema Abdominal: Denies: Nausea, Vomiting Genitourinary Symptoms: Denies: Dysuria Musculoskeletal Complaints: Reports: Other - right upper leg pain Skin: Reports: No Symptoms Reported - Vitals Vitals: Last Vital Signs Temp 37.6 C 08/14/19 04:00 Pulse 117 H 08/14/19 03:00 Resp 24 H 08/14/19 03:00 BP 132/74 08/14/19 03:00 Pulse Ox 94 08/14/19 03:00 - Abnormal Lab Findings Abnormal Lab Findings: Abnormal Lab Results 08/14/19 08/14/19 Range/Units 05:50 05:50 RBC 2.64 L (4.7-6.0) M/mm3 Hgb 7.7 L* (13.5-18.0) gm/dL Hct 22.1 L* (42.0-52.0) % Immature Gran # (Auto) 0.04 H (0.000-0.0310) K/mm3 Lymphocytes % 12.6 L (20-51) % Monocytes % 13.1 H (0.0-9) % Neutrophils # 6.7 H (1.3-6.0) K/mm3 Lymphocytes # 1.15 L (1.5-3.5) k/mm3 Monocytes # 1.2 H (0.0-1.0) k/mm3 Sodium 130 L (132-142) mmol/L Chloride 94 L (97-106) mmol/L BUN/Creatinine Ratio 8.5 L (9.0-21.6) Random Glucose 164 H (70-110) mg/dL Total Protein 5.7 L (6.2-8.2) gm/dL Albumin 2.6 L (3.4-5.0) gm/dl - Exam Constitutional: Present: Alert, Well developed - appears uncomfortable Respiratory: Present: normal breath sounds, no respiratory distress Cardiovascular/Chest: Present: tachycardia Abdomen: Present: soft, nontender Extremity: Present: leg pain, other - Firm right thigh, mild drainage on surgical bandage. Absent: pedal edema Neurologic: Present: alert Cauti Physician Documentation - Urinary Catheter Management Urethral (Paredes) Date of Insertion: 08/12/19 Time of Insertion: 12:05 Date of Removal: 08/13/19 Time of Removal: 08:30 Assessment/Plan - Problems/Diagnosis (1) Femur fracture, right Problem: Acute Qualifiers: Encounter type: subsequent encounter Fracture type: closed Fracture morphology: comminuted Fracture alignment: displaced Fracture healing: with routine healing Narrative: He feels like he can't move his right leg very well, and has fairly significant swelling. this could be normal post op changes, but will obtain a soft tissue US of the region to make sure he does not have a hematoma. His hemoglobin decreased to 7.7 this morning, down from 8.8 yesterday, and he's having some tachycardia. (2) Fever Problem: Acute Narrative: He had a temp of 38.4 overnight, and a temp of 38.3 yesterday. Procalcitonin was not significantly elevated at 0.37. Differential includes infectious source or alcohol withdrawal. His CIWA scores are low, but he appears to be restless, as if he was withdrawing. Will obtain a CDT, but I believe that is a send out lab. White blood cell count has normalized. Will obtain UA, UCS, CXR, blood cultures and start IV rocephin. (3) History of alcohol abuse Problem: Chronic Narrative: Suspect withdrawal. CDT pending, to assess for heavy alcohol use over the last few weeks. Will schedule 1 mg ativan q6h, and see if his fever, tachycardia and restlessness improve. (4) Hypoalbuminemia Problem: Acute Narrative: He is eating very little. Will add ensure to meals. (5) Diabetes mellitus Problem: Chronic Qualifiers: Diabetes mellitus type: type 2 Diabetes mellitus vermin exterminator insulin use: with care home use Diabetes mellitus complication status: without complication Qualified Code(s): E11.9 - Type 2 diabetes mellitus without complications; Z79.4 - watermelon harvesting supervisor (current) use of insulin Narrative: Glucose has been higher than 200 the last couple of mornings. Will add SSI. (6) Morbid obesity with BMI of 40.0-44.9, adult Problem: Chronic
[2019-08-14] MEDS: metFORMIN HCL 500 MG TABLET PO SCH ×2 (08:16→17:29)
[2019-08-14] MEDS: APIXABAN 2.5 MG TABLET PO SCH ×2 (08:16→21:40)
[2019-08-14] MEDS: INSULIN GLARGINE,HUM.REC.ANLOG 100 UNITS/ML VIAL SC SCH (08:16)
[2019-08-14 10:18] LABS: Hematocrit 21.9 % (42.0-52.0); Hemoglobin 7.8 gm/dL (13.5-18.0)
[2019-08-14] MEDS: LORazepam 1 MG TABLET PO SCH ×3 (11:31→23:26)
[2019-08-14] MEDS: INSULIN LISPRO 100 UNITS/ML VIAL SC SCH ×3 (11:32→21:39)
--- NOTE | 2019-08-14 14:41 | PN ---
Marcelina Note - Interim Date: 08/14/19 Time: 14:38 Narrative: 08/14/19 14:38 Received call from nursing that he has been itchy. The itchiness seems to have started since he started taking percocet. Tramadol is now ordered, and will hold the percocet. If the itchiness persists, despite holding percocet, then it is probably not a percocet allergy, and will resume. 25 mg benadryl ordered.
[2019-08-14] MEDS: traMADol HCL 50 MG TABLET PO PRN (15:27)
[2019-08-14 17:28] LABS: Urine Appearance Clear (CLEAR); Urine Bilirubin Negative (NEGATIVE); Urine Color Dark Yellow; Urine Ketone 5 mg/dL (NEGATIVE)
[2019-08-14 17:29] LABS: Urine Bacteria None Seen; Urine Blood Negative /ul (NEGATIVE); Urine Nitrite Negative (NEGATIVE); Urine Protein Negative (NEGATIVE); Urine RBC None Seen /hpf (0-5); Urine Specific Gravity 1.015 SP.GR. (1.005-1.030); Urine Urobilinogen Normal (NORMAL); Urine WBC 0-5 /hpf (0-5)
[2019-08-14] MEDS: HYDROcodone/ACETAMINOPHEN 1 EACH TABLET PO PRN ×2 (17:57→23:50)
[2019-08-14] MEDS ORDERED: ACETAMINOPHEN 1,000 MG/100 ML BTL IV PRN (18:19)
[2019-08-14] MEDS: SENNOSIDES/DOCUSATE SODIUM 1 TAB TABLET PO SCH (21:22)
[2019-08-15] MEDS: LORazepam 1 MG TABLET PO SCH (05:31)
[2019-08-15 06:27] LABS: Mean Cell Volume 84.8 fl (78-100); Mean Corpuscular Hemoglobin 29.6 pg (27-31); Mean Platelet Volume 9.8 fl (8-11.3); Neutrophil # 6.6 K/mm3 (1.3-6.0); Neutrophil % 76.9 % (42-75.0); Platelet Count 187 K/mm3 (150-450); Red Blood Count 2.43 M/mm3 (4.7-6.0); Red Cell Distribution Width 12.7 % (11.5-14.0); White Blood Count 8.6 K/mm3 (4.0-10.5)
[2019-08-15 06:39] LABS: Hemoglobin 7.2 gm/dL (13.5-18.0)
[2019-08-15 06:40] LABS: Hematocrit 20.6 % (42.0-52.0)
[2019-08-15 06:47] LABS: Albumin * 2.4 gm/dl (3.4-5.0); Anion Gap 9.3 mmol/L (6.8-13.8); Bilirubin, Total 0.6 mg/dL (0.0-1.1); Ca. Corrected For Albumin 9.2 mg/dL (8.4-10.2); Calcium * 8.2 mg/dL (7.9-10.9); Carbon Dioxide 31.1 mmol/L (24-32.6); Potassium 3.4 mmol/L (3.4-4.6); Total Protein 5.9 gm/dL (6.2-8.2)
[2019-08-15] MEDS: INSULIN LISPRO 100 UNITS/ML VIAL SC SCH ×4 (07:56→20:27)
[2019-08-15] MEDS: INSULIN GLARGINE,HUM.REC.ANLOG 100 UNITS/ML VIAL SC SCH (07:59)
[2019-08-15] MEDS: APIXABAN 2.5 MG TABLET PO SCH ×2 (08:02→20:27)
[2019-08-15] MEDS: metFORMIN HCL 500 MG TABLET PO SCH ×2 (08:02→17:04)
[2019-08-15] MEDS: HYDROcodone/ACETAMINOPHEN 1 EACH TABLET PO PRN ×3 (08:02→20:27)
--- NOTE | 2019-08-15 08:56 | PN ---
Subjective - Date and Time Seen Date: 08/15/19 Time: 08:53 Subjective Narrative: He reports that IV Tylenol was helpful for his pain, and he thinks the Rupert was also helpful. The tramadol was not. He developed some itching, which is felt to be secondary to Percocet. His thigh swelling is better, but he feels like he is still not able to move that leg. He feels tired. Hemoglobin was decreased this morning to 7.2, and 1 unit PRBCs has been ordered. Objective - Review of Systems Generalized/Overall Review: Reports: Fever Respiratory: Denies: Shortness of Breath Cardiac: Reports: Edema Abdominal: Denies: Vomiting Genitourinary Symptoms: Reports: No Symptoms Reported Musculoskeletal Complaints: Reports: Joint Pain - Right hip, Other Skin: Reports: Other - Skin itching - Vitals Vitals: Last Vital Signs Temp 37.3 C 08/15/19 06:33 Pulse 105 H 08/15/19 06:33 Resp 22 H 08/15/19 06:33 BP 123/66 08/15/19 06:33 Pulse Ox 96 08/15/19 06:33 - Abnormal Lab Findings Abnormal Lab Findings: Abnormal Lab Results 08/14/19 08/14/19 08/15/19 Range/Units 10:00 17:23 06:30 RBC 2.43 L (4.7-6.0) M/mm3 Hgb 7.8 L* 7.2 L* (13.5-18.0) gm/dL Hct 21.9 L* 20.6 L* (42.0-52.0) % Immature Gran % (Auto) 0.60 H (0.001-0.429) % Immature Gran # (Auto) 0.05 H (0.000-0.0310) K/mm3 Neutrophils % 76.9 H (42-75.0) % Lymphocytes % 9.8 L (20-51) % Monocytes % 11.8 H (0.0-9) % Neutrophils # 6.6 H (1.3-6.0) K/mm3 Lymphocytes # 0.84 L (1.5-3.5) k/mm3 Chloride (97-106) mmol/L Est GFR (Non-Af Amer) (60-130) mL/min Random Glucose (70-110) mg/dL ALT (19-67) U/L Total Protein (6.2-8.2) gm/dL Albumin (3.4-5.0) gm/dl Urine Glucose (UA) 250 H (NEGATIVE) mg/dL 08/15/19 Range/Units 06:30 RBC (4.7-6.0) M/mm3 Hgb (13.5-18.0) gm/dL Hct (42.0-52.0) % Immature Gran % (Auto) (0.001-0.429) % Immature Gran # (Auto) (0.000-0.0310) K/mm3 Neutrophils % (42-75.0) % Lymphocytes % (20-51) % Monocytes % (0.0-9) % Neutrophils # (1.3-6.0) K/mm3 Lymphocytes # (1.5-3.5) k/mm3 Chloride 95 L (97-106) mmol/L Est GFR (Non-Af Amer) 131 H D (60-130) mL/min Random Glucose 155 H (70-110) mg/dL ALT 18 L (19-67) U/L Total Protein 5.9 L (6.2-8.2) gm/dL Albumin 2.4 L (3.4-5.0) gm/dl Urine Glucose (UA) (NEGATIVE) mg/dL - Exam Constitutional: Present: Alert, No distress - Appears uncomfortable, and when asks specifics, he states he is tired, Obese Respiratory: Present: lungs clear, normal breath sounds Cardiovascular/Chest: Present: tachycardia Abdomen: Present: obese Extremity: Present: other - improved right thigh swelling Eye contact: Present: avoids eye contact Cauti Physician Documentation - Urinary Catheter Management Urethral (Paredes) Date of Insertion: 08/12/19 Time of Insertion: 12:05 Date of Removal: 17 Time of Removal: 08:30 Assessment/Plan - Problems/Diagnosis (1) Femur fracture, right Problem: Acute Qualifiers: Encounter type: subsequent encounter Fracture type: closed Fracture morphology: comminuted Fracture alignment: displaced Fracture healing: with routine healing Narrative: POD #3 closed reduction, cephalo-medullary fixation of comminuted right joselin- trochanteric femur fracture. Pain control has been a bit difficult. He developed itching after the percocet was started. tramadol was not helpful for pain. He was given a dose of IV tylenol yesterday evening, and he reports this was helpful. He states 2 tablets of norco is helpful. His right thigh swelling has improved. US yesterday, done for concern for seroma, was negative. His ability to participate in PT is limited. He may require placement after DC. (2) Fever Problem: Acute Narrative: He has been spiking fevers for 2 days. Work-up has been done to check for infectious source. White blood cell still not elevated 8.6, procalcitonin slightly high at 0.37, negative UA, atelectasis on chest x-ray. He was started on Rocephin. There is suspicion the fever could be due to withdrawal, however he denies significant alcohol intake, and CIWA scores have not been significantly high (less than 5). Blood cultures pending. He is oxygenating well on room air, and has no increased work of breathing. His pipe processor provider has been remotely consulted. (3) Anemia Problem: Acute Narrative: Hemoglobin had decreased to 7.7 yesterday but stayed at that level throughout the day. Decreased to 7.2 this morning. He is tachycardic, so we will administer 1 unit PRBCs. Recheck H&H 1 hour posttransfusion. (4) History of alcohol abuse Problem: Chronic Narrative: He denies significant alcohol use. Admission ETOH was 4 mg/dl. CIWA scores have been less than 5. CDT pending, but this is a send out lab. (5) Hypoalbuminemia Problem: Acute Narrative: His p.o. intake is been very poor. Ensure added to meals yesterday. Albumin today is further decreased, down to 2.4. (6) Diabetes mellitus Problem: Chronic Qualifiers: Diabetes mellitus type: type 2 Diabetes mellitus terminal carman insulin use: with terminal carman use Diabetes mellitus complication status: without complication Qualified Code(s): E11.9 - Type 2 diabetes mellitus without complications; Z79.4 - half-way (current) use of insulin Narrative: Blood sugars have been elevated, higher than 200. Sliding scale insulin was added yesterday, and he was given 11 units Humalog. We will change his sliding scale protocol to moderate dose insulin. Continue his baseline 55 units Lantus. (7) Morbid obesity with BMI of 40.0-44.9, adult Problem: Chronic
[2019-08-15 13:17] LABS: Hemoglobin 8.2 gm/dL (13.5-18.0)
[2019-08-15 13:19] LABS: Hematocrit 23.8 % (42.0-52.0)
[2019-08-15] MEDS: SENNOSIDES/DOCUSATE SODIUM 1 TAB TABLET PO SCH (20:19)
[2019-08-15] MEDS: traMADol HCL 50 MG TABLET PO PRN (23:41)
[2019-08-15] MEDS: ACETAMINOPHEN 500 MG TABLET PO PRN (23:41)
[2019-08-16] MEDS: HYDROcodone/ACETAMINOPHEN 1 EACH TABLET PO PRN ×4 (06:07→21:22)
[2019-08-16 06:36] LABS: Mean Cell Volume 84.8 fl (78-100); Mean Corpuscular Hemoglobin 29.7 pg (27-31); Mean Corpuscular Hgb Conc 35.1 g/dl (32-36); Mean Platelet Volume 9.7 fl (8-11.3); Neutrophil # 5.6 K/mm3 (1.3-6.0); Neutrophil % 74.7 % (42-75.0); Platelet Count 250 K/mm3 (150-450); Red Blood Count 2.69 M/mm3 (4.7-6.0); Red Cell Distribution Width 13.2 % (11.5-14.0); White Blood Count 7.5 K/mm3 (4.0-10.5)
[2019-08-16 06:44] LABS: Albumin * 2.4 gm/dl (3.4-5.0); Anion Gap 9.4 mmol/L (6.8-13.8); BUN/Creatinine Ratio 13.2 (9.0-21.6); Bilirubin, Total 0.9 mg/dL (0.0-1.1); Carbon Dioxide 30.6 mmol/L (24-32.6); Total Protein 5.8 gm/dL (6.2-8.2)
[2019-08-16 06:53] LABS: Hematocrit 22.8 % (42.0-52.0)
[2019-08-16] MEDS: INSULIN LISPRO 100 UNITS/ML VIAL SC SCH ×4 (08:12→21:47)
[2019-08-16] MEDS: INSULIN GLARGINE,HUM.REC.ANLOG 100 UNITS/ML VIAL SC SCH (08:16)
[2019-08-16] MEDS: metFORMIN HCL 500 MG TABLET PO SCH ×2 (08:16→17:25)
[2019-08-16] MEDS: APIXABAN 2.5 MG TABLET PO SCH ×2 (08:16→21:47)
--- NOTE | 2019-08-16 09:10 | DS ---
(1) Femur fracture, right Problem: Acute Qualifiers: Encounter type: subsequent encounter Fracture type: closed Fracture morphology: comminuted Fracture alignment: displaced Fracture healing: with routine healing (2) Diabetes mellitus Problem: Chronic Qualifiers: Diabetes mellitus type: type 2 Diabetes mellitus penitentiary insulin use: with penitentiary use Diabetes mellitus complication status: without complication Qualified Code(s): E11.9 - Type 2 diabetes mellitus without complications; Z79.4 - truck terminal manager (current) use of insulin (3) Morbid obesity with BMI of 40.0-44.9, adult Problem: Chronic (4) Hypoglycemia associated with type 2 diabetes mellitus Problem: Resolved (5) History of alcohol abuse Problem: Chronic (6) Fever Problem: Resolved Qualifiers: Fever type: post-procedural Qualified Code(s): R50.82 - Postprocedural fever (7) Hypoalbuminemia Problem: Acute (8) Acute blood loss as cause of postoperative anemia Problem: Acute Hospital Course: 48-year-old male with a past medical history of diabetes mellitus type 2, insulin-dependent presents status post fall off of a ladder that slipped out from under him. He fell approximately 10 to 12 feet on his right hip and was brought to the emergency department. He was found to have a comminuted displaced angulated proximal right femur fractures. He denies chest pain, shortness of breath or palpitations. He was cleared for surgery. He is status post closed reduction, cephalo-medullary fixation of comminuted right peritrochanteric femur fracture on August 12, [address] Kimbrough. He did not tolerate Percocet well due to side effect of itching. Pain regimen was changed to [place]. His pain is being controlled with [place]. He developed postop fever but no infectious source was found. Chest x-ray was negative, no leukocytosis, blood cultures were negative. He was given 2 doses of ceftriaxone prophylactically. He is getting up with physical therapy. He was given stool softeners when the narcotics was started. He started having diarrhea once daily and hypokalemia likely secondary to the diarrhea. Potassium was repleted. He will need to keep monitoring his potassium level. He should get a BMP checked on 08/21/2019. Due to his history of alcohol abuse, he was started on CIWA protocol but he did not require Ativan. He is stable to be discharged today. He will need 30 days of postop anticoagulation. Procedures Performed: see notes below List Procedures: Right Closed reduction, cephalo-medullary fixation comminuted right joselin- trochanteric femur fracture Results and Findings: Pending Mircobiology Results 08/14/19 11:04 Blood Blood Culture - Preliminary NO GROWTH 24 HOURS 08/14/19 10:50 Blood Blood Culture - Preliminary NO GROWTH 24 HOURS Lab Pending Results 08/11/19 13:15: WBC 16.2 H, RBC 4.88, Hgb 14.2, Hct 41.3 L, MCV 84.6, MCH 29.1, MCHC 34.4, RDW 12.5, Plt Count 223, MPV 9.2, Immature Gran % (Auto) 0.90 H, Immature Gran # (Auto) 0.15 H, Neutrophils % 88.6 H, Lymphocytes % 4.1 L, Monocytes % 6.0, Eosinophils % 0.2, Basophils % 0.2, Nucleated RBC % 0.0, Neutrophils # 14.4 H, Lymphocytes # 0.67 L, Monocytes # 1.0, Eosinophils # 0.0, Absolute Basophils 0.0 08/11/19 13:15: Sodium 143 H, Plasma Sodium 143 H, Potassium 4.0, Chloride 106, Carbon Dioxide 29.7, Anion Gap 11.3, BUN 12, Creatinine 0.69, Est GFR (Non-Af Amer) 131 H, BUN/Creatinine Ratio 17.4, Random Glucose 127 H, Calcium 8.5, Calcium Adj for Albumin 8.7, Total Bilirubin 0.4, AST 31, ALT 45, Alkaline Phosphatase 151, Total Protein 6.7, Albumin 3.4, Ethyl Alcohol 4.0 08/11/19 13:15: Blood Type O Positive, Antibody Screen Negative 08/11/19 14:45: Urine Opiates Screen Positive H, Barbiturate Screen Negative, Ur Phencyclidine Scrn Negative, Urine Amphetamine Negative, U Benzodiazepines Scrn Negative, Urine Cocaine Screen Negative, Urine Marijuana (THC) Negative 08/12/19 06:15: WBC 7.2 D, RBC 3.74 L, Hgb 10.9 L, Hct 31.7 L, MCV 84.8, MCH 29.1, MCHC 34.4, RDW 12.5, Plt Count 192, MPV 9.1, Immature Gran % (Auto) 0.60 H, Immature Gran # (Auto) 0.04 H, Neutrophils % 74.2, Lymphocytes % 15.1 L, Monocytes % 8.9, Eosinophils % 1.1, Basophils % 0.1, Nucleated RBC % 0.0, Neutrophils # 5.3, Lymphocytes # 1.09 L, Monocytes # 0.6, Eosinophils # 0.1, Absolute Basophils 0.0 08/12/19 06:15: Sodium 136, Plasma Sodium 136, Potassium 3.8, Chloride 102, Carbon Dioxide 28.6, Anion Gap 9.2, BUN 10, Creatinine 0.73, Est GFR (Non-Af Amer) 122, BUN/Creatinine Ratio 13.7, Random Glucose 86 D, Calcium 8.0, Calcium Adj for Albumin 8.6, Total Bilirubin 0.7, AST 26, ALT 37, Alkaline Phosphatase 116, Total Protein 5.7 L, Albumin 2.9 L 08/13/19 06:03: WBC 8.2, RBC 2.95 L, Hgb 8.6 L, Hct 24.7 L, MCV 83.7, MCH 29.2, MCHC 34.8, RDW 12.5, Plt Count 155, MPV 9.4 08/13/19 06:03: Sodium 131 L, Plasma Sodium 132, Potassium 3.9, Chloride 98, Carbon Dioxide 29.1, Anion Gap 7.8, BUN 9, Creatinine 0.73, Est GFR (Non-Af Amer) 122, BUN/Creatinine Ratio 12.3, Random Glucose 184 H D, Calcium 7.7 L 08/14/19 05:40: Procalcitonin 0.37 08/14/19 05:50: WBC 9.2, RBC 2.64 L, Hgb 7.7 L*, Hct 22.1 L*, MCV 83.7, MCH 29.2, MCHC 34.8, RDW 12.5, Plt Count 152, MPV 9.4, Immature Gran % (Auto) 0.40, Immature Gran # (Auto) 0.04 H, Neutrophils % 73.3, Lymphocytes % 12.6 L, Monocytes % 13.1 H, Eosinophils % 0.5, Basophils % 0.1, Nucleated RBC % 0.0, Neutrophils # 6.7 H, Lymphocytes # 1.15 L, Monocytes # 1.2 H, Eosinophils # 0.1, Absolute Basophils 0.0 01/18/20 05:50: Sodium 130 L, Plasma Sodium 131, Potassium 3.5, Chloride 94 L, Carbon Dioxide 29.4, Anion Gap 10.1, BUN 7, Creatinine 0.82, Est GFR (Non-Af Amer) 107, BUN/Creatinine Ratio 8.5 L, Random Glucose 164 H, Calcium 8.0, Calcium Adj for Albumin 8.8, Total Bilirubin 0.5, AST 20, ALT 20, Alkaline Phosphatase 91, Total Protein 5.7 L, Albumin 2.6 L 08/14/19 10:00: Hgb 7.8 L*, Hct 21.9 L* 08/14/19 10:00: Blood Type O Positive, Antibody Screen Negative, Crossmatch See Detail 08/14/19 17:23: Urine Color Dark yellow, Urine Appearance Clear, Urine pH 6.0, Ur Specific [place] 1.015, Urine Protein Negative, Urine Glucose (UA) 250 H, Urine Ketones 5, Urine Blood Negative, Urine Nitrate Negative, Urine Bilirubin Negative, Urine Urobilinogen Normal, Ur Leukocyte Esterase Negative, Urine RBC None seen, Urine WBC 0-5, Ur Epithelial Cells 0-5, Urine Bacteria None seen, Urine Culture Comments No culture indicated 08/15/19 06:30: WBC 8.6, RBC 2.43 L, Hgb 7.2 L*, Hct 20.6 L*, MCV 84.8, MCH 29.6, MCHC 35.0, RDW 12.7, Plt Count 187, MPV 9.8, Immature Gran % (Auto) 0.60 H, Immature Gran # (Auto) 0.05 H, Neutrophils % 76.9 H, Lymphocytes % 9.8 L, Monocytes % 11.8 H, Eosinophils % 0.8, Basophils % 0.1, Nucleated RBC % 0.0, Neutrophils # 6.6 H, Lymphocytes # 0.84 L, Monocytes # 1.0, Eosinophils # 0.1, Absolute Basophils 0.0 08/15/19 06:30: Sodium 132, Plasma Sodium 133, Potassium 3.4, Chloride 95 L, Carbon Dioxide 31.1, Anion Gap 9.3, BUN 9, Creatinine 0.69, Est GFR (Non-Af Amer) 131 H D, BUN/Creatinine Ratio 13.0, Random Glucose 155 H, Calcium 8.2, Calcium Adj for Albumin 9.2, Total Bilirubin 0.6, AST 17, ALT 18 L, Alkaline Phosphatase 89, Total Protein 5.9 L, Albumin 2.4 L 08/15/19 13:12: Hgb 8.2 L, Hct 23.8 L* 08/16/19 06:10: WBC 7.5, RBC 2.69 L, Hgb 8.0 L, Hct 22.8 L*, MCV 84.8, MCH 29.7, MCHC 35.1, RDW 13.2, Plt Count 250, MPV 9.7, Immature Gran % (Auto) 0.80 H, Immature Gran # (Auto) 0.06 H, Neutrophils % 74.7, Lymphocytes % 11.1 L, Monocytes % 11.4 H, Eosinophils % 1.7, Basophils % 0.3, Nucleated RBC % 0.0, Neutrophils # 5.6, Lymphocytes # 0.83 L, Monocytes # 0.9, Eosinophils # 0.1, Absolute Basophils 0.0 08/16/19 06:10: Sodium 134, Plasma Sodium 134, Potassium 3.0 L, Chloride 97, Carbon Dioxide 30.6, Anion Gap 9.4, BUN 9, Creatinine 0.68, Est GFR (Non-Af Amer) 133 H, BUN/Creatinine Ratio 13.2, Random Glucose 120 H, Calcium 8.0, Calcium Adj for Albumin 9.0, Total Bilirubin 0.9, AST 20, ALT 25, Alkaline Phosphatase 85, Total Protein 5.8 L, Albumin 2.4 L Discharge Location: [facility] Disposition: SNF Condition: Fair Level of Care: SNF Discharge Activity: Weight bearing - 25% weightbearing on the right leg Discharge Diet: Consistent carbs Penitentiary Therapy: Physical Therapy, Occupation Therapy Additional Patient Instructions (free text): BMP on 08/21/2019 to check potassium levels. Followup Orthopedic Dr. Kimbrough appointment on at 10:45am.. Needs 6 weeks on anticoagulation. Patient is on Eliquis. Keep hip dressing C/D/I. Change PRN if soiled or for drainage. Cover with dry gauze and tape. Prescriptions (Any new or edited meds): Insulin Glargine,Hum.rec.anlog [Keturahaglgely Yeboah U-100] 55 unit SQ DAILY #1 ea Transmission Status: Pending to [facility] Apixaban [Eliquis] 2.5 mg PO BID 24 Days #48 tab Transmission Status: Received by [facility] metFORMIN HCL [Metformin HCl] 500 mg PO BID #14 tab Transmission Status: Pending to [facility] HYDROcodone/ACETAMINOPHEN [[place] 5-325] 2 ea PO Q4H PRN #90 tab PRN Reason: Moderate Pain (Pain Scale 4-6) Transmission Status: Received by [facility] Complete Home Medications List: Complete Home Medication List: Apixaban [Eliquis] 2.5 mg PO BID 24 Days #48 tab 08/19/19 HYDROcodone/ACETAMINOPHEN [[place] 5-325] 2 ea PO Q4H PRN #90 tab 08/19/19 Insulin Glargine,Hum.rec.anlog [James Yeboah U-100] 55 unit SQ DAILY #1 ea 08/19/19 metFORMIN HCL [Metformin HCl] 500 mg PO BID #14 tab 08/19/19
[2019-08-16] MEDS ORDERED: POTASSIUM BICARBONATE/CIT AC 25 MEQ TABLET.EFF PO ONE (09:30)
--- NOTE | 2019-08-16 11:40 | PN ---
Subjective - Date and Time Seen Date: 08/16/19 Time: 09:30 Subjective Narrative: Subjective: Reports pain. He has had his pain medicines adjusted over the weekend but states that they do not seem to last long enough. Was able to get up to the chair with therapy. Voiding without any complications. He has been having some diarrhea. Tolerating by mouth intake. Denies any nausea or vomiting. Denies calf pain. Physical exam: Alert and oriented to person, place and time Right lower extremity: Palpable dorsalis pedis pulse. Sensation grossly intact to light touch. Dressings changed and wound is benign. Able to flex and extend ankle and toes. No excessive drainage. Calf and thigh are soft and nontender. Thigh is swollen but stable Assessment: Postop day 4 status post intramedullary fixation of right peritrochanteric femur fracture. Plan: Continue with physical and occupational therapy 25% weightbearing and range of motion as tolerated. Continue with anticoagulation -he will need 30 days of DVT prophylaxis. Pain control with goal to rely on oral medications. Hold bowel regimen. Will need 6 weeks with walker or assitive device to protect joint while ambulating during the recovery process. Discharge planning. Objective - Vitals Vitals: Last Vital Signs Temp 36.5 C 08/16/19 10:00 Pulse 124 H 08/16/19 10:00 Resp 18 08/16/19 10:00 BP 115/73 08/16/19 10:00 Pulse Ox 98 08/16/19 10:00 - Abnormal Lab Findings Abnormal Lab Findings: Abnormal Lab Results 08/14/19 08/15/19 08/16/19 Range/Units 10:00 13:12 06:10 RBC 2.69 L (4.7-6.0) M/mm3 Hgb 8.2 L 8.0 L (13.5-18.0) gm/dL Hct 23.8 L* 22.8 L* (42.0-52.0) % Immature Gran % (Auto) 0.80 H (0.001-0.429) % Immature Gran # (Auto) 0.06 H (0.000-0.0310) K/mm3 Lymphocytes % 11.1 L (20-51) % Monocytes % 11.4 H (0.0-9) % Lymphocytes # 0.83 L (1.5-3.5) k/mm3 Potassium (3.4-4.6) mmol/L Est GFR (Non-Af Amer) (60-130) mL/min Random Glucose (70-110) mg/dL Total Protein (6.2-8.2) gm/dL Albumin (3.4-5.0) gm/dl Crossmatch See Detail 08/16/19 Range/Units 06:10 RBC (4.7-6.0) M/mm3 Hgb (13.5-18.0) gm/dL Hct (42.0-52.0) % Immature Gran % (Auto) (0.001-0.429) % Immature Gran # (Auto) (0.000-0.0310) K/mm3 Lymphocytes % (20-51) % Monocytes % (0.0-9) % Lymphocytes # (1.5-3.5) k/mm3 Potassium 3.0 L (3.4-4.6) mmol/L Est GFR (Non-Af Amer) 133 H (60-130) mL/min Random Glucose 120 H (70-110) mg/dL Total Protein 5.8 L (6.2-8.2) gm/dL Albumin 2.4 L (3.4-5.0) gm/dl Crossmatch Cauti Physician Documentation - Urinary Catheter Management Urethral (Paredes) Date of Insertion: 08/12/19 Time of Insertion: 12:05 Date of Removal: 08/13/19 Time of Removal: 08:30 Assessment/Plan - Problems/Diagnosis (1) Femur fracture, right Problem: Acute Qualifiers: Encounter type: subsequent encounter Fracture type: closed Fracture morphology: comminuted Fracture alignment: displaced Fracture healing: with routine healing
--- NOTE | 2019-08-16 18:16 | PN ---
Subjective - Date and Time Seen Date: 08/16/19 Time: 08:45 Subjective Narrative: He feels tired and sweaty. He complains of diarrhea secondary to the stool softeners Objective - Review of Systems Generalized/Overall Review: Denies: Chills, Fever Respiratory: Denies: Shortness of Breath Cardiac: Denies: Chest Pain Abdominal: Denies: Abdominal Pain Misc: All systems neg except as marked - Vitals Vitals: Last Vital Signs Temp 37.1 C 08/16/19 14:38 Pulse 88 08/16/19 14:38 Resp 16 08/16/19 14:38 BP 117/61 08/16/19 14:38 Pulse Ox 99 08/16/19 14:38 - Abnormal Lab Findings Abnormal Lab Findings: Abnormal Lab Results 08/16/19 08/16/19 Range/Units 06:10 06:10 RBC 2.69 L (4.7-6.0) M/mm3 Hgb 8.0 L (13.5-18.0) gm/dL Hct 22.8 L* (42.0-52.0) % Immature Gran % (Auto) 0.80 H (0.001-0.429) % Immature Gran # (Auto) 0.06 H (0.000-0.0310) K/mm3 Lymphocytes % 11.1 L (20-51) % Monocytes % 11.4 H (0.0-9) % Lymphocytes # 0.83 L (1.5-3.5) k/mm3 Potassium 3.0 L (3.4-4.6) mmol/L Est GFR (Non-Af Amer) 133 H (60-130) mL/min Random Glucose 120 H (70-110) mg/dL Total Protein 5.8 L (6.2-8.2) gm/dL Albumin 2.4 L (3.4-5.0) gm/dl - Exam Constitutional: Present: Alert, Cooperative, Well developed, Well nourished, No distress, Obese ENT Exam: Present: hearing grossly normal Neck: Present: non-tender. Absent: lymphadenopathy (R), lymphadenopathy (L) Respiratory: Present: lungs clear, no accessory muscle use Cardiovascular/Chest: Present: normal peripheral pulses, regular rate, rhythm, no murmur Abdomen: Present: soft, nontender, other - Bowel sounds slightly hyperactive. Extremity: Present: lower extremity edema - 2+ edema nonpitting of the right lower extremity Skin Exam: Present: normal color, warm/dry, diaphoresis Neurologic: Present: alert, normal mood/affect Appearance: Present: appropriate appearance Eye contact: Present: cooperative Thoughts: Present: normal thought pattern Cauti Physician Documentation - Urinary Catheter Management Urethral (Paredes) Date of Insertion: 08/12/19 Time of Insertion: 12:05 Date of Removal: 08/13/19 Time of Removal: 08:30 Assessment/Plan Plan Narrative: 48-year-old female with a male with a past medical history of diabetes mellitus type 2, insulin-dependent presents status post fall off of a ladder that slipped out from under him. He fell approximately 10 to 12 feet on his right hip and was brought to the emergency department. He was found to have a comminuted displaced angulated proximal right femur fractures. He denies chest pain, shortness of breath or palpitations. He does have a lot of pain in the right hip. Ortho, Dr. Bansal was consulted and he will take the patient to the operating room later today. He is status post closed reduction, cephalo-medullary fixation of comminuted right peritrochanteric femur fracture on August 12, [address] [place]. He has been afebrile. Over the weekend he was placed on ceftriaxone due to questionable infectious process. He received 1 unit of blood over the weekend. Blood count is stable today. He was switched from Percocet to [place] for further pain. It was stopped Percocet was causing the itching. He is stable and ready for discharge but we are waiting in placement in a rehab Plan #1 Continue with [place] 53 25 2 tablets every 4 hours as needed for pain #2 Stop ceftriaxone due to no focus of infection #3 Stop stool softeners due to diarrhea #4 Continue all home medications for comorbidities. #5 Continue with physical therapy and Occupational Therapy #6 CIWA protocol with Ativan as needed #7 awaiting placement in a rehab facility - Problems/Diagnosis (1) Femur fracture, right Problem: Acute Qualifiers: Encounter type: subsequent encounter Fracture type: closed Fracture morphology: comminuted Fracture alignment: displaced Fracture healing: with routine healing (2) Diabetes mellitus Problem: Chronic Qualifiers: Diabetes mellitus type: type 2 Diabetes mellitus [facility] insulin use: with terminal block assembler use Diabetes mellitus complication status: without complication Qualified Code(s): E11.9 - Type 2 diabetes mellitus without complications; Z79.4 - rn long term care (current) use of insulin (3) Morbid obesity with BMI of 40.0-44.9, adult Problem: Chronic (4) Hypoglycemia associated with type 2 diabetes mellitus Problem: Resolved (5) History of alcohol abuse Problem: Chronic (6) Fever Problem: Resolved Qualifiers: Fever type: post-procedural Qualified Code(s): R50.82 - Postprocedural fever (7) Hypoalbuminemia Problem: Acute (8) Acute blood loss as cause of postoperative anemia Problem: Acute
[2019-08-16] MEDS: SENNOSIDES/DOCUSATE SODIUM 1 TAB TABLET PO SCH (21:40)
[2019-08-17] MEDS: HYDROcodone/ACETAMINOPHEN 1 EACH TABLET PO PRN ×5 (01:22→20:10)
[2019-08-17 06:58] LABS: Mean Cell Volume 86.5 fl (78-100); Mean Corpuscular Hemoglobin 29.2 pg (27-31); Mean Corpuscular Hgb Conc 33.8 g/dl (32-36); Mean Platelet Volume 9.3 fl (8-11.3); Neutrophil # 4.8 K/mm3 (1.3-6.0); Neutrophil % 71.4 % (42-75.0); Platelet Count 266 K/mm3 (150-450); Red Cell Distribution Width 13.7 % (11.5-14.0); White Blood Count 6.7 K/mm3 (4.0-10.5)
[2019-08-17 07:12] LABS: Hemoglobin 7.6 gm/dL (13.5-18.0)
[2019-08-17 07:13] LABS: Hematocrit 22.5 % (42.0-52.0)
[2019-08-17 07:22] LABS: Albumin * 2.2 gm/dl (3.4-5.0); Anion Gap 8.5 mmol/L (6.8-13.8); BUN/Creatinine Ratio 12.1 (9.0-21.6); Bilirubin, Total 0.9 mg/dL (0.0-1.1); Ca. Corrected For Albumin 9.1 mg/dL (8.4-10.2); Carbon Dioxide 31.4 mmol/L (24-32.6); Potassium 2.9 mmol/L (3.4-4.6); Total Protein 5.5 gm/dL (6.2-8.2)
[2019-08-17] MEDS: INSULIN LISPRO 100 UNITS/ML VIAL SC SCH ×4 (07:28→20:11)
[2019-08-17] MEDS: traMADol HCL 50 MG TABLET PO PRN ×2 (09:05→17:18)
[2019-08-17] MEDS: APIXABAN 2.5 MG TABLET PO SCH ×2 (09:05→20:10)
[2019-08-17] MEDS: metFORMIN HCL 500 MG TABLET PO SCH ×2 (09:05→17:18)
[2019-08-17] MEDS: INSULIN GLARGINE,HUM.REC.ANLOG 100 UNITS/ML VIAL SC SCH (09:07)
[2019-08-17] MEDS ORDERED: POTASSIUM BICARBONATE/CIT AC 25 MEQ TABLET.EFF PO ONE (11:25)
--- NOTE | 2019-08-17 14:37 | PN ---
Subjective - Date and Time Seen Date: 08/17/19 Time: 08:45 Subjective Narrative: He denies any more episodes of diarrhea today. He does continue to have pain in the right hip. Denies chest pain shortness of breath or abdominal pain. Objective - Review of Systems Generalized/Overall Review: Reports: Diaphoresis. Denies: Chills, Fever Respiratory: Denies: Shortness of Breath Cardiac: Denies: Chest Pain Abdominal: Denies: Abdominal Pain Musculoskeletal Complaints: Reports: Joint Pain - Right hip Misc: All systems neg except as marked - Vitals Vitals: Last Vital Signs Temp 37.1 C 08/17/19 07:38 Pulse 93 08/17/19 10:00 Resp 20 08/17/19 07:38 BP 128/77 08/17/19 07:38 Pulse Ox 95 08/17/19 07:38 - Abnormal Lab Findings Abnormal Lab Findings: Abnormal Lab Results 08/17/19 08/17/19 Range/Units 06:52 06:52 RBC 2.60 L (4.7-6.0) M/mm3 Hgb 7.6 L* (13.5-18.0) gm/dL Hct 22.5 L* (42.0-52.0) % Immature Gran % (Auto) 1.40 H (0.001-0.429) % Immature Gran # (Auto) 0.09 H (0.000-0.0310) K/mm3 Lymphocytes % 14.7 L (20-51) % Monocytes % 10.2 H (0.0-9) % Lymphocytes # 0.98 L (1.5-3.5) k/mm3 Potassium 2.9 L (3.4-4.6) mmol/L Est GFR (Non-Af Amer) 138 H (60-130) mL/min Total Protein 5.5 L (6.2-8.2) gm/dL Albumin 2.2 L (3.4-5.0) gm/dl - Exam Constitutional: Present: Alert, Cooperative, Well developed, Well nourished, No distress ENT Exam: Present: hearing grossly normal Neck: Present: non-tender, supple. Absent: lymphadenopathy (R), lymphadenopathy (L) Respiratory: Present: lungs clear, no respiratory distress, no accessory muscle use, No wheezing. Absent: crackles, rhonchi Cardiovascular/Chest: Present: normal peripheral pulses, regular rate, rhythm, no murmur, edema - Right lower extremity Abdomen: Present: Normal bowel sounds, soft, nontender Extremity: Present: lower extremity edema - Right lower extremity Skin Exam: Present: normal color, warm/dry Neurologic: Present: alert, normal mood/affect Appearance: Present: appropriate appearance Eye contact: Present: cooperative Thoughts: Present: normal thought pattern, normal mood /affect Cauti Physician Documentation - Urinary Catheter Management Urethral (Paredes) Date of Insertion: 08/12/19 Time of Insertion: 12:05 Date of Removal: 08/13/19 Time of Removal: 08:30 Assessment/Plan Plan Narrative: 48-year-old male with a past medical history of diabetes mellitus type 2, insulin-dependent presents status post fall off of a ladder that slipped out from under him. He fell approximately 10 to 12 feet on his right hip and was brought to the emergency department. He was found to have a comminuted displaced angulated proximal right femur fractures. He denies chest pain, shortness of breath or palpitations. He does have a lot of pain in the right hip. Ortho, Dr. Bansal was consulted and he will take the patient to the operating room later today. He is status post closed reduction, cephalo-medullary fixation of comminuted right peritrochanteric femur fracture on August 12, [address] Oviedo. He has been afebrile. Over the weekend he was placed on ceftriaxone due to questionable infectious process. He received 1 unit of blood over the weekend. Blood count is stable today. He was switched from Percocet to [place] for further pain. It was stopped Percocet was causing the itching. He is stable and ready for discharge but we are waiting in placement in a rehab. His hemoglobin is dropped from 8.2-7.6 morning. This is likely a consequence of the surgery. He had a drop in hemoglobin 2 days ago and received a unit of blood. At the same time he had an ultrasound performed that was negative for hematoma. He denies any symptoms of chest pain, shortness of breath or dizziness. He denies any cardiac history. Per up-to-date recommendations, due to the lack of symptoms and no acute cardiac event for cardiac history I will continue to monitor the H&H. If the hemoglobin drops below 7 g/dL I will consider transfusing him. The patient would like to go to a rehab facility rather than home he feels he cannot care for himself. Awaiting clearance from his insurance regarding placement in rehab. Plan #1 Continue with [place] 53 25 2 tablets every 4 hours as needed for pain #2 Stop ceftriaxone due to no focus of infection #3 Stop stool softeners due to diarrhea #4 Continue all home medications for comorbidities. #5 Continue with physical therapy and Occupational Therapy #6 Patient has been in the hospital for 6-7 days and has not required Ativan. I will discontinue CIWA protocol and as needed Ativan. #7 awaiting placement in a rehab facility. - Problems/Diagnosis (1) Femur fracture, right Problem: Acute Qualifiers: Encounter type: subsequent encounter Fracture type: closed Fracture morphology: comminuted Fracture alignment: displaced Fracture healing: with routine healing (2) Diabetes mellitus Problem: Chronic Qualifiers: Diabetes mellitus type: type 2 Diabetes mellitus shelter insulin use: with modeling agent use Diabetes mellitus complication status: without complication Qualified Code(s): E11.9 - Type 2 diabetes mellitus without complications; Z79.4 - [facility] (current) use of insulin (3) Morbid obesity with BMI of 40.0-44.9, adult Problem: Chronic (4) Hypoglycemia associated with type 2 diabetes mellitus Problem: Resolved (5) History of alcohol abuse Problem: Chronic (6) Fever Problem: Resolved Qualifiers: Fever type: post-procedural Qualified Code(s): R50.82 - Postprocedural fever (7) Hypoalbuminemia Problem: Acute (8) Acute blood loss as cause of postoperative anemia Problem: Acute
[2019-08-17] MEDS: SENNOSIDES/DOCUSATE SODIUM 1 TAB TABLET PO SCH (20:18)
[2019-08-17 21:03] LABS: % CDT 2.7 % (<2.5)
[2019-08-18] MEDS: HYDROcodone/ACETAMINOPHEN 1 EACH TABLET PO PRN ×5 (00:11→19:44)
[2019-08-18 06:34] LABS: Hemoglobin 8.1 gm/dL (13.5-18.0); Mean Corpuscular Hemoglobin 28.8 pg (27-31); Mean Corpuscular Hgb Conc 32.4 g/dl (32-36); Mean Platelet Volume 9.3 fl (8-11.3); Neutrophil # 4.7 K/mm3 (1.3-6.0); Neutrophil % 73.7 % (42-75.0); Platelet Count 328 K/mm3 (150-450); Red Blood Count 2.81 M/mm3 (4.7-6.0); Red Cell Distribution Width 14.4 % (11.5-14.0); White Blood Count 6.4 K/mm3 (4.0-10.5)
[2019-08-18 06:59] LABS: Albumin * 2.3 gm/dl (3.4-5.0); Anion Gap 7.9 mmol/L (6.8-13.8); BUN/Creatinine Ratio 15.4 (9.0-21.6); Ca. Corrected For Albumin 9.1 mg/dL (8.4-10.2); Calcium * 8.1 mg/dL (7.9-10.9); Potassium 2.9 mmol/L (3.4-4.6); Total Protein 5.7 gm/dL (6.2-8.2)
[2019-08-18] MEDS: INSULIN LISPRO 100 UNITS/ML VIAL SC SCH ×4 (07:51→20:05)
[2019-08-18] MEDS: metFORMIN HCL 500 MG TABLET PO SCH ×2 (08:22→16:59)
[2019-08-18] MEDS: INSULIN GLARGINE,HUM.REC.ANLOG 100 UNITS/ML VIAL SC SCH (08:22)
[2019-08-18] MEDS: APIXABAN 2.5 MG TABLET PO SCH ×2 (08:22→20:08)
[2019-08-18] MEDS: POTASSIUM BICARBONATE/CIT AC 25 MEQ TABLET.EFF PO SCH ×2 (10:37→20:08)
--- NOTE | 2019-08-18 11:29 | PN ---
Subjective - Date and Time Seen Date: 08/18/19 Time: 11:28 Subjective Narrative: Subjective: Reports pain is somewhat improved. He was able to walk around the room with therapy. He has been having some diarrhea. Tolerating by mouth intake. Denies any nausea or vomiting. Denies calf pain. Physical exam: Alert and oriented to person, place and time Right lower extremity: Palpable dorsalis pedis pulse. Sensation grossly intact to light touch. Able to flex and extend ankle and toes. No excessive drainage. Calf and thigh are soft and nontender. Thigh is swollen but stable Assessment: status post intramedullary fixation of right peritrochanteric femur fracture. Plan: Continue with physical and occupational therapy 25% weightbearing and range of motion as tolerated. Continue with anticoagulation -he will need 30 days of DVT prophylaxis. Pain control with goal to rely on oral medications. Hold bowel regimen. Will need 6 weeks with walker or assitive device to protect joint while ambulating during the recovery process. Discharge planning. Objective - Vitals Vitals: Last Vital Signs Temp 35.3 C L 08/18/19 10:00 Pulse 92 08/18/19 10:00 Resp 20 08/18/19 10:00 BP 123/67 08/18/19 10:00 Pulse Ox 94 08/18/19 10:00 - Abnormal Lab Findings Abnormal Lab Findings: Abnormal Lab Results 08/14/19 08/18/19 08/18/19 Range/Units 10:00 06:33 06:33 RBC 2.81 L (4.7-6.0) M/mm3 Hgb 8.1 L (13.5-18.0) gm/dL Hct 25.0 L (42.0-52.0) % RDW 14.4 H (11.5-14.0) % Immature Gran % (Auto) 0.90 H (0.001-0.429) % Immature Gran # (Auto) 0.06 H (0.000-0.0310) K/mm3 Lymphocytes % 13.8 L (20-51) % Monocytes % 9.1 H (0.0-9) % Lymphocytes # 0.88 L (1.5-3.5) k/mm3 Potassium 2.9 L (3.4-4.6) mmol/L Carbon Dioxide 33.0 H (24-32.6) mmol/L Est GFR (Non-Af Amer) 140 H (60-130) mL/min Random Glucose 120 H (70-110) mg/dL Transferrin 133 L mg/dL Carb-defic Transfer % 2.7 H % Total Protein 5.7 L (6.2-8.2) gm/dL Albumin 2.3 L (3.4-5.0) gm/dl [facility] Physician Documentation - Urinary Catheter Management Urethral ([place]aredes) Date of Insertion: 08/12/19 Time of Insertion: 12:05 Date of Removal: 08/13/19 Time of Removal: 08:30 Assessment/Plan - Problems/Diagnosis (1) Femur fracture, right Problem: Acute Qualifiers: Encounter type: subsequent encounter Fracture type: closed Fracture morphology: comminuted Fracture alignment: displaced Fracture healing: with routine healing
--- NOTE | 2019-08-18 16:51 | PN ---
Subjective - Date and Time Seen Date: 08/18/19 Time: 08:50 Subjective Narrative: States he had one episode of diarrhea this morning. He feels that the right hip pain is improving. He was able to mobilize the right leg a little more today. Objective - Review of Systems Generalized/Overall Review: Denies: Chills, Fever Respiratory: Denies: Shortness of Breath Cardiac: Denies: Chest Pain Abdominal: Denies: Abdominal Pain Musculoskeletal Complaints: Reports: Joint Pain - Right hip, Joint Swelling - R ight leg Misc: All systems neg except as marked - Vitals Vitals: Last Vital Signs Temp 36 C 08/18/19 13:26 Pulse 86 08/18/19 13:26 Resp 18 08/18/19 13:26 BP 113/64 08/18/19 13:26 Pulse Ox 93 08/18/19 13:26 - Abnormal Lab Findings Abnormal Lab Findings: Abnormal Lab Results 08/14/19 08/18/19 08/18/19 Range/Units 10:00 06:33 06:33 RBC 2.81 L (4.7-6.0) M/mm3 Hgb 8.1 L (13.5-18.0) gm/dL Hct 25.0 L (42.0-52.0) % RDW 14.4 H (11.5-14.0) % Immature Gran % (Auto) 0.90 H (0.001-0.429) % Immature Gran # (Auto) 0.06 H (0.000-0.0310) K/mm3 Lymphocytes % 13.8 L (20-51) % Monocytes % 9.1 H (0.0-9) % Lymphocytes # 0.88 L (1.5-3.5) k/mm3 Potassium 2.9 L (3.4-4.6) mmol/L Carbon Dioxide 33.0 H (24-32.6) mmol/L Est GFR (Non-Af Amer) 140 H (60-130) mL/min Random Glucose 120 H (70-110) mg/dL Transferrin 133 L mg/dL Carb-defic Transfer % 2.7 H % Total Protein 5.7 L (6.2-8.2) gm/dL Albumin 2.3 L (3.4-5.0) gm/dl - Exam Constitutional: Present: Alert, Cooperative, Well developed, Well nourished, No distress ENT Exam: Present: hearing grossly normal Neck: Present: non-tender, supple, trachea midline. Absent: lymphadenopathy (R), lymphadenopathy (L) Respiratory: Present: lungs clear, no respiratory distress, no accessory muscle use, No wheezing. Absent: crackles, rhonchi Cardiovascular/Chest: Present: normal peripheral pulses, regular rate, rhythm, no murmur, edema - +2 nonpitting edema, improving Abdomen: Present: Normal bowel sounds, soft, nontender Extremity: Present: lower extremity edema - +2 nonpitting edema, improving Skin Exam: Present: normal color, warm/dry Neurologic: Present: alert, normal mood/affect Appearance: Present: appropriate appearance, appropriate insight Thoughts: Present: normal thought pattern, normal mood /affect [facility]i Physician Documentation - Urinary Catheter Management Urethral (Paredes) Date of Insertion: 08/12/19 Time of Insertion: 12:05 Date of Removal: 08/13/19 Time of Removal: 08:30 Assessment/Plan Plan Narrative: 48-year-old male with a past medical history of diabetes mellitus type 2, insulin-dependent presents status post fall off of a ladder that slipped out from under him. He fell approximately 10 to 12 feet on his right hip and was brought to the emergency department. He was found to have a comminuted displaced angulated proximal right femur fractures. He denies chest pain, shortness of breath or palpitations. He does have a lot of pain in the right hip. Ortho, Dr. Bansal was consulted and he will take the patient to the operating room later today. He is status post closed reduction, cephalo-medullary fixation of comminuted right peritrochanteric femur fracture on August 12, [address] [place]. He has been afebrile. Over the weekend he was placed on ceftriaxone due to questionable infectious process. He received 1 unit of blood over the weekend. Blood count is stable today. He was switched from Percocet to [place] for further pain. It was stopped Percocet was causing the itching. He is stable and ready for discharge but we are waiting in placement in a rehab. His hemoglobin is dropped from 8.2-7.6 morning. This is likely a consequence of the surgery. He had a drop in hemoglobin 2 days ago and received a unit of blood. At the same time he had an ultrasound performed that was negative for hematoma. He denies any symptoms of chest pain, shortness of breath or dizziness. He denies any cardiac history. Per up-to-date recommendations, due to the lack of symptoms and no acute cardiac event for cardiac history I will continue to monitor the H&H. If the hemoglobin drops below 7 g/dL I will consider transfusing him. Hemoglobin today is 8.1. The patient would like to go to rehab. We are awaiting clearance from his insurance regarding placement in rehab. Plan #1 Continue with [place] 53 25 2 tablets every 4 hours as needed for pain #2 Stop ceftriaxone due to no focus of infection #3 Stop stool softeners due to diarrhea #4 Continue all home medications for comorbidities. #5 Continue with physical therapy and Occupational Therapy #6 awaiting placement in a rehab facility. - Problems/Diagnosis (1) Femur fracture, right Problem: Acute Qualifiers: Encounter type: subsequent encounter Fracture type: closed Fracture morphology: comminuted Fracture alignment: displaced Fracture healing: with routine healing (2) Diabetes mellitus Problem: Chronic Qualifiers: Diabetes mellitus type: type 2 Diabetes mellitus mcc insulin use: with mcc use Diabetes mellitus complication status: without complication Qualified Code(s): E11.9 - Type 2 diabetes mellitus without complications; Z79.4 - alf (current) use of insulin (3) Morbid obesity with BMI of 40.0-44.9, adult Problem: Chronic (4) Hypoglycemia associated with type 2 diabetes mellitus Problem: Resolved (5) History of alcohol abuse Problem: Chronic (6) Fever Problem: Resolved Qualifiers: Fever type: post-procedural Qualified Code(s): R50.82 - Postprocedural fever (7) Hypoalbuminemia Problem: Acute (8) Acute blood loss as cause of postoperative anemia Problem: Acute
[2019-08-18] MEDS: traMADol HCL 50 MG TABLET PO PRN (16:59)
[2019-08-18] MEDS: SENNOSIDES/DOCUSATE SODIUM 1 TAB TABLET PO SCH (20:08)
[2019-08-19] MEDS: HYDROcodone/ACETAMINOPHEN 1 EACH TABLET PO PRN ×3 (00:06→09:46)
[2019-08-19 06:55] LABS: Hematocrit 25.8 % (42.0-52.0); Hemoglobin 8.3 gm/dL (13.5-18.0); Mean Cell Volume 89.6 fl (78-100); Mean Corpuscular Hemoglobin 28.8 pg (27-31); Mean Corpuscular Hgb Conc 32.2 g/dl (32-36); Mean Platelet Volume 9.1 fl (8-11.3); Neutrophil # 4.9 K/mm3 (1.3-6.0); Neutrophil % 74.2 % (42-75.0); Platelet Count 379 K/mm3 (150-450); Red Blood Count 2.88 M/mm3 (4.7-6.0); Red Cell Distribution Width 15.1 % (11.5-14.0); White Blood Count 6.6 K/mm3 (4.0-10.5)
[2019-08-19 07:06] LABS: Albumin * 2.3 gm/dl (3.4-5.0); BUN/Creatinine Ratio 11.8 (9.0-21.6); Ca. Corrected For Albumin 9.2 mg/dL (8.4-10.2); Calcium * 8.2 mg/dL (7.9-10.9); Carbon Dioxide 33.2 mmol/L (24-32.6); Potassium 3.2 mmol/L (3.4-4.6); Total Protein 5.8 gm/dL (6.2-8.2)
[2019-08-19] MEDS: INSULIN LISPRO 100 UNITS/ML VIAL SC SCH (08:08)
[2019-08-19] MEDS: metFORMIN HCL 500 MG TABLET PO SCH (09:15)
[2019-08-19] MEDS: APIXABAN 2.5 MG TABLET PO SCH (09:15)
[2019-08-19] MEDS: POTASSIUM BICARBONATE/CIT AC 25 MEQ TABLET.EFF PO SCH (09:16)
[2019-08-19] MEDS: INSULIN GLARGINE,HUM.REC.ANLOG 100 UNITS/ML VIAL SC SCH (09:17)
[2019-08-19 10:43] VITALS: BP 116/73
== END 2019-08-19 11:00 | DRG 481 ==
LOC: ER 12:15 → MS 13:36
PROVIDERS: ADMIT Internal Medicine; ATTEND Internal Medicine
CPT/HCPCS: 36415; 71010; 71045; 73502; 76882; 80048; 80053; 80307; 81001; 82373; 84145; 85014; 85018; 85025; 85027; 86850; 87040; 96361; 96374; 96376; 97110; 97116; 97161; 97166; 97530; 97535; 99285; J0131; P9016